=== PATIENT | male | born 1990 | race Caucasian/White ===

== ENCOUNTER → 2022-06-03 | Day surgery (SDC) | payer BC ==
[2022-06-03] VITALS (8 sets, daily range): BP systolic 147–162; BP diastolic 86–94
[~2022-06-03] VITALS: Ht 185.5 cm; Wt 99.8 kg
[~2022-06-03] MED LIST: ACHD5005 PO; AMOX-355 PO; AMOX1TAB11 PO; GLYCOPYRROLATE 0.2 MG/ML (ROBINUL) 2 ML VIAL ONE; HYDROmorphone 2 MG/ML VIAL (DILAUDID) IV ONE; IOHEXOL 350 MG/ML 100 ML (OMNIPAQUE 350) VIAL IV ONE; LACTATED RINGERS 1,000 ML IV ONE; LIDOCAINE PF 2% 5 ML (XYLOCAINE) VIAL ONE; LIDOCAINE/EPI 2% 1:200,00 (XYLOCAINE) 20 ML VIAL ONE; MEPERIDINE (DEMEROL) INJ 50 MG/ML IVP ONE; MEPERIDINE (DEMEROL) INJ 50 MG/ML ONE; MIDAZOLAM 2 MG/2 ML (VERSED) VIAL ONE; NEOSTIGMINE (BLOXIVERZ ) 1 MG/1ML 10 ML VIAL ONE; NS (IVPB) 100 ML ONE; NS 100 ML (IVPB) BAG IV ONE; ONDANSETRON 4 MG/2 ML (SDV) Z0FRAN IVP PRN; ONDANSETRON 4 MG/2 ML (SDV) Z0FRAN ONE; PIPERACILLIN/TAZO 4.5 GM VIAL (ZOSYN) IV ONE; PROMETHAZINE INJ 25 MG/ML (PHENERGAN) AMP IVP ONE; ROCURONIUM 50 MG/5 ML (ZEMURON) VIAL IV ONE; SEVOFLURANE (ULTANE) 15 ML INHAL SOLN ONE; ceFAZolin INJECTION 2,000 MG ONE; fentaNYL INJ 100 MCG/2 ML AMP IVP ONE; fentaNYL INJ 100 MCG/2 ML AMP ONE; morphine INJ 10 MG/ML 1ML (SYR OR VIAL) IVP ONE; morphine INJ 10 MG/ML 1ML (SYR OR VIAL) IVP STA; morphine INJ 10 MG/ML 1ML (SYR OR VIAL) ONE; proPOfol 200 MG/20 ML (DIPRIVAN) VIAL IV ONE
[2022-06-03 17:25] LABS: BASOPHILS # (AUTO) 0.1 10^3/uL (0.0-0.1); BASOPHILS % (AUTO) 0 % (0-10); EOSINOPHILS % (AUTO) 0 % (0-10); HEMATOCRIT 45 % (40-54); HEMOGLOBIN 15.5 g/dL (13.3-17.7); LYMPHOCYTES # (AUTO) 1.2 10^3/uL (1.0-4.0); LYMPHOCYTES % (AUTO) 6 % (12-44); MEAN CORPUSCULAR HEMOGLOBIN 29 pg (25-34); MEAN CORPUSCULAR HGB CONC 34 g/dL (32-36); MEAN CORPUSCULAR VOLUME 83 fL (80-99); MEAN PLATELET VOLUME 8.6 fL (9.0-12.2); MONOCYTES # (AUTO) 1.3 10^3/uL (0.0-1.0); MONOCYTES % (AUTO) 6 % (0-12); NEUTROPHILS # (AUTO) 18.8 10^3/uL (1.8-7.8); NEUTROPHILS % (AUTO) 88 % (42-75); PLATELET COUNT 334 10^3/uL (130-400); WHITE BLOOD COUNT 21.4 10^3/uL (4.3-11.0)
--- NOTE | 2022-06-03 17:27 | ED Abdominal Pain ---
General Chief Complaint: Abdominal/GI Problems Stated Complaint: ABDOMINAL PAIN Source of Information: Patient Exam Limitations: No Limitations History of Present Illness Date Seen by Provider: Jun 03, 2022 Time Seen by Provider: 17:07 Initial Comments Patient to the ER by private conveyance for chief complaint that about 5:00 yesterday evening he started having some right lower quadrant abdominal pain that is only progressively gotten worse. He is nauseated without vomiting. He has not eaten since 1900 yesterday evening. He is not having diarrhea fevers but he is having chills. He has no history of abdominal surgeries. He has not taken anything for pain. No significant family or medical history. Allergies and Home Medications Allergies Coded Allergies: No Known Drug Allergies (Unverified , 06/03/22) Patient Home Medication List Home Medication List Reviewed: Yes Review of Systems Review of Systems Constitutional: No chills, No diaphoresis EENTM: No Blurred Vision, No Double Vision Respiratory: Denies Cough, Denies Shortness of Air Cardiovascular: Denies Chest Pain, Denies Lightheadedness Gastrointestinal: Denies Abdominal Pain, Denies Constipated, Denies Diarrhea; Nausea; Denies Vomiting Genitourinary: Denies Burning, Denies Discharge Musculoskeletal: No back pain, No joint pain All Other Systems Reviewed Negative Unless Noted: Yes Past Nmutxyj-Zibdzh-Bpojxd Hx Patient Social History Tobacco Use?: No Use of E-Cig and/or Vaping dev: No Substance use?: No Alcohol Use?: Yes Alcohol type: Beer Alcohol Frequency: Several times a month (Weekend drinker) Physical Exam Vital Signs Vital Signs - First Documented 06/03/22 17:00 Temp 36.6 Pulse 93 Resp 24 B/P (MAP) 144/87 (106) Pulse Ox 97 Capillary Refill : Height/Weight/BMI Height: '" Weight: lbs. oz. kg; BMI Method: General Appearance: WD/WN, moderate distress HEENT: PERRL/EOMI, pharynx normal Neck: full range of motion, normal inspection Respiratory: lungs clear, normal breath sounds, no respiratory distress, no accessory muscle use Cardiovascular: normal peripheral pulses, regular rate, rhythm Peripheral Pulses: 2+ Radial Pulses (R), 2+ Radial Pulses (L) Gastrointestinal: normal bowel sounds, soft, guarding (Right lower quadrant), tenderness (Right lower quadrant tenderness with rebound tenderness and Rovsing sign positive.) Extremities: normal inspection, normal capillary refill Neurologic/Psychiatric: alert, normal mood/affect, oriented x 3 Skin: normal color, warm/dry Progress/Results/Core Measures Results/Orders Lab Results Laboratory Tests Test 06/03/22 17:10 Range/Units White Blood Count 21.4 H 4.3-11.0 10^3/uL Red Blood Count 5.42 4.30-5.52 10^6/uL Hemoglobin 15.5 13.3-17.7 g/dL Hematocrit 45 40-54 % Mean Corpuscular Volume 83 80-99 fL Mean Corpuscular Hemoglobin 29 25-34 pg Mean Corpuscular Hemoglobin Concent 34 32-36 g/dL Red Cell Distribution Width 12.8 10.0-14.5 % Platelet Count 334 130-400 10^3/uL Mean Platelet Volume 8.6 L 9.0-12.2 fL Immature Granulocyte % (Auto) 0 % Neutrophils (%) (Auto) 88 H 42-75 % Lymphocytes (%) (Auto) 6 L 12-44 % Monocytes (%) (Auto) 6 0-12 % Eosinophils (%) (Auto) 0 0-10 % Basophils (%) (Auto) 0 0-10 % Neutrophils # (Auto) 18.8 H 1.8-7.8 10^3/uL Lymphocytes # (Auto) 1.2 1.0-4.0 10^3/uL Monocytes # (Auto) 1.3 H 0.0-1.0 10^3/uL Eosinophils # (Auto) 0.0 0.0-0.3 10^3/uL Basophils # (Auto) 0.1 0.0-0.1 10^3/uL Immature Granulocyte # (Auto) 0.1 0.0-0.1 10^3/uL Neutrophils % (Manual) 81 % Lymphocytes % (Manual) 7 % Monocytes % (Manual) 6 % Eosinophils % (Manual) 0 % Basophils % (Manual) 0 % Band Neutrophils 6 % Blood Morphology Comment NORMAL Sodium Level 135 135-145 MMOL/L Potassium Level 3.6 3.6-5.0 MMOL/L Chloride Level 99 98-107 MMOL/L Carbon Dioxide Level 24 21-32 MMOL/L Anion Gap 12 5-14 MMOL/L Blood Urea Nitrogen 6 L 7-18 MG/DL Creatinine 0.98 0.60-1.30 MG/DL Estimat Glomerular Filtration Rate 106 BUN/Creatinine Ratio 6 Glucose Level 116 H 70-105 MG/DL Calcium Level 9.5 8.5-10.1 MG/DL Corrected Calcium 9.1 8.5-10.1 MG/DL Total Bilirubin 1.9 H 0.1-1.0 MG/DL Aspartate Amino Transf (AST/SGOT) 15 5-34 U/L Alanine Aminotransferase (ALT/SGPT) 23 0-55 U/L Alkaline Phosphatase 62 40-136 U/L C-Reactive Protein High Sensitivity 14.33 H 0.00-0.50 MG/DL Total Protein 8.2 6.4-8.2 GM/DL Albumin 4.5 3.2-4.5 GM/DL My Orders Orders - ETHAN BORGES Ed Iv/Invasive Line Start (06/03/22 17:17) Lactated Ringers (Lr 1000 Ml Iv Solution (06/03/22 17:30) Ct Abd/Pelv W (Appendicitis) (06/03/22 17:17) Fentanyl Inj (Sublimaze Injection) (06/03/22 17:30) Cbc With Automated Diff (06/03/22 17:17) Comprehensive Metabolic Panel (06/03/22 17:17) Hs C Reactive Protein (06/03/22 17:17) Iohexol Injection (Omnipaque 350 Mg/Ml 1 (06/03/22 17:30) Ns (Ivpb) (Sodium Chloride 0.9% Ivpb Bag (06/03/22 17:30) Manual Differential (06/03/22 17:10) Medications Given in ED Current Medications Medications Dose Ordered Sig/Chris Route Start Time Stop Time Status Last Admin Dose Admin Fentanyl Citrate 50 mcg ONCE ONCE IVP 06/03/22 17:30 06/03/22 17:31 DC 06/03/22 17:24 50 MCG Iohexol 100 ml ONCE ONCE IV 06/03/22 17:30 06/03/22 17:31 DC 06/03/22 17:56 80 ML Lactated Ringer's 1,000 ml @ 0 mls/hr Q0M ONCE IV 06/03/22 17:30 06/03/22 17:31 DC 06/03/22 17:24 0 MLS/HR Sodium Chloride 100 ml ONCE ONCE IV 06/03/22 17:30 06/03/22 17:31 DC 06/03/22 17:56 80 ML Vital Signs/I&O 06/03/22 17:00 Temp 36.6 Pulse 93 Resp 24 B/P (MAP) 144/87 (106) Pulse Ox 97 Progress Progress Note : Time: 17:25 Progress Note Plan to give him 50 mcg of fentanyl, a liter of LR, ondansetron and get a CT of the abdomen pelvis with IV contrast. Suspect appendicitis versus colitis versus diverticulitis versus other Diagnostic Imaging Diagonstic Imaging: CT Plain Films/CT/US/NM/MRI: abdomen, pelvis Comments [facility] [place], [place] NAME: [facility] REC#: [id number] PT STATUS: REG ER : 1990 PHYSICIAN: ETHAN BORGES MD ADMIT DATE: 06/03/22/ER Draft Date of Exam:06/03/22 CT ABD/PELV W (APPENDICITIS) PROCEDURE: CT abdomen and pelvis with contrast, rule out appendicitis. TECHNIQUE: Multiple contiguous axial images were obtained through the abdomen and pelvis after the administration of intravenous contrast. All CT scans use one or more of the following dose optimizing techniques: automated exposure control, MA and/or KvP adjustment based on patient size and exam type or iterative reconstruction. INDICATION: Right lower quadrant pain with nausea, vomiting, and diarrhea. No prior studies are available for comparison. The lung bases are clear. Liver does show some generalized low attenuation suggestive of hepatic steatosis. No liver mass is detected. Gallbladder is unremarkable. There is no biliary ductal dilatation. Pancreas and spleen are unremarkable. No adrenal mass is detected. Kidneys are without hydronephrosis. There does appear to be approximately 2 mm nonobstructing calculus lower pole right kidney. Aorta is nonaneurysmal. There is significant inflammation in the right lower quadrant. The appendix is dilated and thick-walled and does contain an appendicolith. Periappendiceal inflammation is present. No definite abscess formation or bowel obstruction is seen. There are some fluid-filled small bowel loops. The ascending colon is also fluid-filled. No free fluid is seen. Bladder and prostate are unremarkable. IMPRESSION: 1. Findings consistent with acute appendicitis. The appendix does contain an appendicolith. No abscess formation or bowel obstruction is identified. 2. Hepatic steatosis. Dictated on workstation # [id number] Dict: 06/03/22 1759 Trans: 06/03/22 1807 [facility] [id number] Interpreted by: RENETTA POSEY MD Electronically signed by: Reviewed: Reviewed by Me Departure Communication (Admissions) Time/Spoke to Admitting Phy: 18:[address] Foster who plans to take him straight to surgery. Keep him n.p.o. He will dose with antibiotics prior to surgery Impression Primary Impression: Appendicitis Qualified Codes: K35.30 - Acute appendicitis with localized peritonitis, without perforation or gangrene Disposition: 01 HOME, SELF-CARE Condition: Stable Admissions Decision to Admit Reason: Admit from ER (General) Decision to Admit/Date: Jun 03, 2022 Time/Decision to Admit Time: 18:22 ETHAN BORGES Jun 03, 2022 17:27
[2022-06-03 17:31] LABS: ALBUMIN 4.5 GM/DL (3.2-4.5); POTASSIUM 3.6 MMOL/L (3.6-5.0)
[2022-06-03 17:32] LABS: CALCIUM 9.5 MG/DL (8.5-10.1)
[2022-06-03 17:34] LABS: TOTAL PROTEIN 8.2 GM/DL (6.4-8.2)
[2022-06-03 17:36] LABS: BILIRUBIN,TOTAL 1.9 MG/DL (0.1-1.0)
[2022-06-03 17:37] LABS: CREATININE SERUM 0.98 MG/DL (0.60-1.30)
[2022-06-03 17:43] LABS: BAND NEUTROPHILS 6 %; BASOPHILS % (MANUAL) 0 %; EOSINOPHILS % (MANUAL) 0 %; LYMPHOCYTES % (MANUAL) 7 %; MONOCYTES % (MANUAL) 6 %; NEUTROPHILS % (MANUAL) 81 %; RBC MORPH NORMAL
--- NOTE | 2022-06-03 18:08 | Diagnostic Imaging Report ---
PROCEDURE: CT abdomen and pelvis with contrast, rule out appendicitis. TECHNIQUE: Multiple contiguous axial images were obtained through the abdomen and pelvis after the administration of intravenous contrast. All CT scans use one or more of the following dose optimizing techniques: automated exposure control, MA and/or KvP adjustment based on patient size and exam type or iterative reconstruction. INDICATION: Right lower quadrant pain with nausea, vomiting, and diarrhea. No prior studies are available for comparison. The lung bases are clear. Liver does show some generalized low attenuation suggestive of hepatic steatosis. No liver mass is detected. Gallbladder is unremarkable. There is no biliary ductal dilatation. Pancreas and spleen are unremarkable. No adrenal mass is detected. Kidneys are without hydronephrosis. There does appear to be approximately 2 mm nonobstructing calculus lower pole right kidney. Aorta is nonaneurysmal. There is significant inflammation in the right lower quadrant. The appendix is dilated and thick-walled and does contain an appendicolith. Periappendiceal inflammation is present. No definite abscess formation or bowel obstruction is seen. There are some fluid-filled small bowel loops. The ascending colon is also fluid-filled. No free fluid is seen. Bladder and prostate are unremarkable. IMPRESSION: 1. Findings consistent with acute appendicitis. The appendix does contain an appendicolith. No abscess formation or bowel obstruction is identified. 2. Hepatic steatosis. Dictated by: Dictated on workstation # [id number]
--- NOTE | 2022-06-03 19:06 | Consultation - Surgery ---
History of Present Illness History of Present Illness Patient Consulted On(sarai/time) 06/03/22 18:58 Time Seen by Provider: 18:41 History of Present Illness Surgery asked to consult regarding RLQ pain. HPI per ED: Patient to the ER by private conveyance for chief complaint that about 5:00 yesterday evening he started having some right lower quadrant abdominal pain that is only progressively gotten worse. He is nauseated without vomiting. He has not eaten since 1900 yesterday evening. He is not having diarrhea fevers but he is having chills. He has no history of abdominal surgeries. He has not taken anything for pain. No significant family or medical history. When I spoke to the patient in the ER he was in his bed in room 2 in mild to moderate distress secondary pain he can tell that he was hurting. States the pain started yesterday evening and just never went away he rated as at least a 7-8 out of 10 on a 1-10 scale never got better did not really get worse. Associate with some nausea no vomiting. He states he has had some chills. He has not been able to eat because of the pain last time he ate was last night at 7 PM. He states he never had anything like this before, he stated nothing made it better and bouncing in the car made a little bit worse. Allergies and Home Medications Allergies Coded Allergies: No Known Drug Allergies (Unverified , 06/03/22) Patient Home Medication List Home Medication List Reviewed: Yes Past Dsaxziz-Ynbcmw-Qrtvcq Hx Patient Social History Smoking Status: Never a Smoker Alcohol Use?: Yes Surgeries History of Surgeries: No Respiratory History of Respiratory Disorde: No Cardiovascular History of Cardiac Disorders: No Neurological History of Neurological Disord: No Genitourinary History of Genitourinary Disor: No Gastrointestinal History of Gastrointestinal Di: No Musculoskeletal History of Musculoskeletal Dis: No Endocrine History of Endocrine Disorders: No HEENT History of HEENT Disorders: No Loss of Vision: Denies Hearing Impairment: Denies Cancer History of Cancer: No Psychosocial History of Psychiatric Problem: No Integumentary History of Skin or Integumenta: No Family Medical History Significant Family History: Heart Disease (Mother at 39) Review of Systems-General Constitutional: chills; No diaphoresis, No fever EENTM: No blurred vision, No double vision, No mouth swelling, No epistaxis Respiratory: No cough, No dyspnea on exertion, No short of breath Cardiovascular: No chest pain, No palpitations Gastrointestinal: abdominal pain (RLQ); No jaundice; loss of appetite, nausea; No vomiting Genitourinary: No dysuria, No frequency, No hematuria Musculoskeletal: No joint pain, No joint swelling, No muscle stiffness Skin: No change in color, No change in hair/nails Psychiatric/Neurological: Denies Anxiety, Denies Depressed, Denies Seizure, Denies Tremors Physical Exam-General Problems Physical Exam Vital Signs Vital Signs - First Documented 06/03/22 17:00 Temp 36.6 Pulse 93 Resp 24 B/P (MAP) 144/87 (106) Pulse Ox 97 Capillary Refill : General Appearance: WD/WN, mild distress Eyes: Bilateral Eye PERRL, Bilateral Eye EOMI HEENT: pharynx normal; No scleral icterus (R), No scleral icterus (L) Neck: non-tender, supple Respiratory: lungs clear, normal breath sounds, no respiratory distress, no accessory muscle use Cardiovascular: regular rate, rhythm, no murmur Gastrointestinal: soft, no organomegaly, tenderness (diffusely but more so RLQ), hernia (umbilical) Back: no CVA tenderness, no vertebral tenderness Extremities: non-tender, normal inspection, no pedal edema, no calf tenderness Neurologic/Psychiatric: systems integrator II-XII nml as tested, no motor/sensory deficits, alert, normal mood/affect, oriented x 3 Skin: normal color, warm/dry Lymphatic: no adenopathy (neck, axilla or groin) Data Review Labs Laboratory Tests 06/03/22 17:10: White Blood Count 21.4H, Red Blood Count 5.42, Hemoglobin 15.5, Hematocrit 45, Mean Corpuscular Volume 83, Mean Corpuscular Hemoglobin 29, Mean Corpuscular Hemoglobin Concent 34, Red Cell Distribution Width 12.8, Platelet Count 334, Mean Platelet Volume 8.6L, Immature Granulocyte % (Auto) 0, Neutrophils (%) (Auto) 88H, Lymphocytes (%) (Auto) 6L, Monocytes (%) (Auto) 6, Eosinophils (%) (Auto) 0, Basophils (%) (Auto) 0, Neutrophils # (Auto) 18.8H, Lymphocytes # (Auto) 1.2, Monocytes # (Auto) 1.3H, Eosinophils # (Auto) 0.0, Basophils # (Auto) 0.1, Immature Granulocyte # (Auto) 0.1, Neutrophils % (Manual) 81, Lymphocytes % (Manual) 7, Monocytes % (Manual) 6, Eosinophils % (Manual) 0, Basophils % (Manual) 0, Band Neutrophils 6, Blood Morphology Comment NORMAL, Sodium Level 135, Potassium Level 3.6, Chloride Level 99, Carbon Dioxide Level 24, Anion Gap 12, Blood Urea Nitrogen 6L, Creatinine 0.98, Estimat Glomerular Filtration Rate 106, BUN/Creatinine Ratio 6, Glucose Level 116H, Calcium Level 9.5, Corrected Calcium 9.1, Total Bilirubin 1.9H, Aspartate Amino Transf (AST/SGOT) 15, Alanine Aminotransferase (ALT/SGPT) 23, Alkaline Phosphatase 62, C-Reactive Protein High Sensitivity 14.33H, Total Protein 8.2, Albumin 4.5 Radiology Date of Exam:06/03/22 CT ABD/PELV W (APPENDICITIS) PROCEDURE: CT abdomen and pelvis with contrast, rule out appendicitis. TECHNIQUE: Multiple contiguous axial images were obtained through the abdomen and pelvis after the administration of intravenous contrast. All CT scans use one or more of the following dose optimizing techniques: automated exposure control, MA and/or KvP adjustment based on patient size and exam type or iterative reconstruction. INDICATION: Right lower quadrant pain with nausea, vomiting, and diarrhea. No prior studies are available for comparison. The lung bases are clear. Liver does show some generalized low attenuation suggestive of hepatic steatosis. No liver mass is detected. Gallbladder is unremarkable. There is no biliary ductal dilatation. Pancreas and spleen are unremarkable. No adrenal mass is detected. Kidneys are without hydronephrosis. There does appear to be approximately 2 mm nonobstructing calculus lower pole right kidney. Aorta is nonaneurysmal. There is significant inflammation in the right lower quadrant. The appendix is dilated and thick-walled and does contain an appendicolith. Periappendiceal inflammation is present. No definite abscess formation or bowel obstruction is seen. There are some fluid-filled small bowel loops. The ascending colon is also fluid-filled. No free fluid is seen. Bladder and prostate are unremarkable. IMPRESSION: 1. Findings consistent with acute appendicitis. The appendix does contain an appendicolith. No abscess formation or bowel obstruction is identified. 2. Hepatic steatosis. Dictated on workstation # [id number] Dict: 06/03/22 1244 Trans: 06/03/22 1807 [facility] [id number] Interpreted by: RENETTA POSEY MD Assessment/Plan Assessment/Plan Assessment/Plan Acute Appendicitis Patient has pretty classic signs for appendicitis he has right lower quadrant pain that has not gotten better he had some nausea no vomiting had a CAT scan performed I looked at it myself visualized the images and discussed this case with the ER physician. He has an appendicolith stranding and inflammation in the right lower quadrant this is acute appendicitis. Discussed the procedure with the patient he needs a laparoscopic appendectomy possible open. Discussed risk and complications not limited to pain, bleeding, infection, scar and damage to intestine with need for further procedure. All questions answered to patient's satisfaction. He will get IV fluids IV antibiotics on-call to the OR pain meds as needed antiemetics as needed and if everything goes smoothly he will probably be able to go home tonight. NAMITA NEAL DO Jun 03, 2022 19:06
[2022-06-03] MEDS: LACTATED RINGERS 1,000 ML IV PRN ×2 (19:07→19:39)
[2022-06-03] MEDS: fentaNYL INJ 100 MCG/2 ML AMP ONE ×2 (19:51→20:34)
--- NOTE | 2022-06-03 20:24 | Progress Note-Post Operative ---
Post-Operative Progess Note Surgeon (s)/General Matcher (s) Surgeon NAMITA NEAL DO General Matcher: NONE Pre-Operative Diagnosis Acute Appendicitis Post-Operative Diagnosis Same with perforation Procedure & Operative Findings Date of Procedure 06/03/22 Procedure Performed/Findings PROCEDURE: Laparoscopic appendectomy. COMPLICATIONS: None. INDICATIONS: The patient is a 31 year old male who has been having right lower quadrant abdominal pain. Patient's exam consistent with appendicitis. I discussed risk and benefits of laparoscopic appendectomy and all indicated procedures with the possibility being a normal appendix. The patient understands the risks and benefits and wishes to proceed. Consent was signed on the chart. DESCRIPTION OF PROCEDURE: The patient was taken to the operating suite, prepped and draped in a sterile fashion. Timeout was performed. Local anesthetic was infiltrated just above the umbilicus and 11-blade scalpel was used to make a skin incision. Cautery was used to dissect down to the fascia and scored. Kochers were used to grasp and elevate it and the abdomen was then entered. A 0 Vicryl was placed in a [id number] fashion for closure at the end of the case. The balloon trocar was inserted into the abdomen and pneumoperitoneum was achieved. Under direct visualization of the laparoscope, a 5 mm trocar was placed in the suprapubic region and a 5 mm trocar was placed in the left lower quadrant. Appendix was located, under omentum and fibrinous material. While moving everything aside encountered small amout of fecal material and then found hole in appendix. The base of the appendix was dissected around. Once at the base an Endo-ISH 2.5 stapler was then fired across the base of the appendix. The mesoappendix was then divided. It was then placed in an Endobag and removed through the 12 mm trocar site. The abdomen was then copiously irrigated and suctioned. No other pathology noted. Elected to place a EMELY drain in the right colic gutter and brought it out through the supra-pubic incision. It was sutured in place with a 2-0 Nylon suture. The abdomen was then desufflated and the trocars were removed. The 0 Vicryl placed at the beginning of the case was then tied closing the 12 mm fascial defect. The skin was then closed using 4-0 Monocryl in a subcuticular fashion. The abdomen was then washed and dried and Skin Affix was placed over the incisions. The patient tolerated the procedure well without any complications and was taken to the recovery room in stable condition. Anesthesia Type GET Estimated Blood Loss Estimated blood loss (mL): scant Specimens/Packing Specimens Removed appendix NAMITA NEAL DO Jun 03, 2022 20:24
--- NOTE | 2022-06-03 20:27 | Discharge Inst-Surgical ---
Discharge Inst-Surgical Depart Medication/Instructions New, Converted or Re-Newed RX: Transmitted to Pharmacy Patient Instructions Follow up Appt: Make appointment for 1 week. [phone] Instructions: No lifting greater than 20 pounds. No strenuous activity. May shower in 24 hours, no tub bath or soaking. Use incentive spirometer at home as directed. No Smoking Skin/Wound Care: May remove bandages in am. You need to leave the Dermabond on incision it will fall off on it's own. Symptoms to Report: Appetite Changes, Extremity Discoloration, Numbness/Tingling, Swelling Increased, Bleeding Excessive, Eyesight Changes, Pain Increased, Urine Color Change, Constipation(Persistent), Fever over 101 degree F, Pain/Pressure in chest, Urinating Difficulty, Cough Up/Vomit Blood, Heart Beat Irreg/Pounding, Pain/Pressure in jaw, Cramps in feet or legs, Lightheadedness, Pain/Pressure in shoulder, Diarrhea(Persistent), Memory Changes Suddenly, Questions/Concerns, Weight gain consecutive days, Dizziness/Fainting, Nausea/Vomiting, Shortness of Breath, Weight gain over 2 pounds If questions or concerns contact your physician Or seek help at emergency department. Activity Activity as Tolerated: Yes Activity Instructions: Avoid Stress to Incision Driving Instructions: No Driving/Refer to Dr. Flower Discharge Diet: No Restrictions Diet After 24 Hours: Clear Liquid if Nauseous If Any Problems/Questions/Issu: Contact Your Physician, Go to Emergency Room Skin/Wound Care Infection Signs and Symptoms: Increased Redness, Foul Odor of Wound, Increased Drainage, Skin Itchy or Has a Rash, Increased Swelling, Temperature Above 101 F Wound Care Comment: EMELY drain teaching Bathing Instructions: Shower Stitches/[place]/Dermabond Dis: Dermabond Ice Pack: Ice On and Off Site NAMITA NEAL DO Jun 03, 2022 20:27
--- NOTE | 2022-06-04 10:38 | Anesthesia-General Post-Op ---
General Patient Condition Mental Status/LOC: Same as Preop Cardiovascular: Satisfactory Nausea/Vomiting: Absent Respiratory: Satisfactory Pain: Controlled Complications: Absent Post Op Complications Complications None Follow Up Care/Instructions Patient Instructions None needed. Anesthesia/Patient Condition Patient Condition Patient is doing well, no complaints, stable vital signs, no apparent adverse anesthesia problems. No complications reported per nursing. INA MANNING CRNA Jun 04, 2022 10:38
== END | disposition home or self-care (01) ==
LOC: ER 16:48 → SDC 18:49
PROVIDERS: ATTEND Surgery
DX: K35.32 Acute appendicitis with perforation, localized peritonitis, and gangrene, without abscess (principal); Z28.310 Unvaccinated for COVID-19
CPT/HCPCS: 36415; 74177; 80053; 85007; 85027; 86141; 96361; 96374; 96375

== ENCOUNTER 2022-06-09 09:24 | Inpatient (IN) | payer BC ==
[~2022-06-09] VITALS: Ht 185 cm; Wt 96.1 kg
[~2022-06-09 09:24] MED LIST changes: -AMOX1TAB11 PO; -GLYCOPYRROLATE 0.2 MG/ML (ROBINUL) 2 ML VIAL ONE; -HYDROmorphone 2 MG/ML VIAL (DILAUDID) IV ONE; -IOHEXOL 350 MG/ML 100 ML (OMNIPAQUE 350) VIAL IV ONE; -LACTATED RINGERS 1,000 ML IV ONE; -LIDOCAINE PF 2% 5 ML (XYLOCAINE) VIAL ONE; -LIDOCAINE/EPI 2% 1:200,00 (XYLOCAINE) 20 ML VIAL ONE; -MEPERIDINE (DEMEROL) INJ 50 MG/ML IVP ONE; -MEPERIDINE (DEMEROL) INJ 50 MG/ML ONE; -MIDAZOLAM 2 MG/2 ML (VERSED) VIAL ONE; -NEOSTIGMINE (BLOXIVERZ ) 1 MG/1ML 10 ML VIAL ONE; -NS (IVPB) 100 ML ONE; -NS 100 ML (IVPB) BAG IV ONE; -ONDANSETRON 4 MG/2 ML (SDV) Z0FRAN IVP PRN; -ONDANSETRON 4 MG/2 ML (SDV) Z0FRAN ONE; -PIPERACILLIN/TAZO 4.5 GM VIAL (ZOSYN) IV ONE; -PROMETHAZINE INJ 25 MG/ML (PHENERGAN) AMP IVP ONE; -ROCURONIUM 50 MG/5 ML (ZEMURON) VIAL IV ONE; -SEVOFLURANE (ULTANE) 15 ML INHAL SOLN ONE; -ceFAZolin INJECTION 2,000 MG ONE; -fentaNYL INJ 100 MCG/2 ML AMP IVP ONE; -fentaNYL INJ 100 MCG/2 ML AMP ONE; -morphine INJ 10 MG/ML 1ML (SYR OR VIAL) IVP ONE; -morphine INJ 10 MG/ML 1ML (SYR OR VIAL) IVP STA; -morphine INJ 10 MG/ML 1ML (SYR OR VIAL) ONE; -proPOfol 200 MG/20 ML (DIPRIVAN) VIAL IV ONE
[2022-06-09] MEDS ORDERED: NS 100 ML (IVPB) BAG IV ONE (10:00)
[2022-06-09] MEDS ORDERED: IOHEXOL 350 MG/ML 100 ML (OMNIPAQUE 350) VIAL IV ONE (10:00)
[2022-06-09] MEDS ORDERED: fentaNYL INJ 100 MCG/2 ML AMP IVP ONE (10:00)
[2022-06-09] MEDS ORDERED: NS IV 1000 ML 1,000 ML IV SCH (10:00)
[2022-06-09] MEDS ORDERED: CATHETER FLUSH 10 ML SYR IV PRN (10:00)
--- NOTE | 2022-06-09 10:02 | ED Abdominal Pain ---
General Chief Complaint: Post OP Complications/Pain Stated Complaint: R SHOULDER PAIN, SWEATS Nursing Triage Note: PT STATES HAVING AN APPENDECTOMY HERE LAST THURSDAY, CC OF POST OP PAIN IN ABD AND RT SHOULDER, DIARRHEA, SINUS DRAINAGE, DRAIN FROM LOWER ABD INCISION SHOWS CLEAR YELLOW DRAINAGE. PT IS STILL TAKING ABX BUT QUIT TAKING HIS HYDROS BECUASE HE COULDN'T SLEEP WHEN HE TOOK THEM. Source of Information: Patient Exam Limitations: No Limitations History of Present Illness Date Seen by Provider: Jun 09, 2022 Time Seen by Provider: 09:40 Initial Comments 31-year-old male presents emergency department today for right lower abdominal pain, right shoulder pain. He had laparoscopic appendectomy for a partially perforated appendix on 06/03. He states he has had continued pain in his right lower abdomen since the procedure. Record review shows he had a partially perforated appendix and a EMELY drain was placed. He states in his right lower abdomen is dull throbbing without radiation. New pain in his right shoulder as well. He has chills at home but has not taken her temperature. He is having bowel movements. No vomiting. He stopped taking pain medications a couple days ago as he thought it was responsible for his chills. No urinary symptoms and urinating without difficulty. He is taking antibiotics as prescribed on discharge Allergies and Home Medications Allergies Coded Allergies: No Known Drug Allergies (Unverified , 06/03/22) Patient Home Medication List Home Medication List Reviewed: Yes Amoxicillin/Potassium Clav (Augmentin 500-125 Tablet) 500 Mg-125 Mg Tablet, 1 EACH PO TID Prescribed by: NAMITA NEAL on 06/03/222025 Hydrocodone Bit/Acetaminophen (HYDROcodone/APAP 5 MG/325 MG TAB) 1 Tab Tab, 1 TAB PO Q8H PRN for PAIN-MODERATE (5-7) Prescribed by: NAMITA NEAL on 06/03/222025 Review of Systems Review of Systems Constitutional: chills, fever, malaise EENTM: No Symptoms Reported Respiratory: No Symptoms Reported Cardiovascular: No Symptoms Reported Gastrointestinal: Abdominal Pain Genitourinary: No Symptoms Reported Musculoskeletal: joint pain Skin: no symptoms reported Psychiatric/Neurological: No Symptoms Reported Endocrine: No Symptoms Reported Hematologic/Lymphatic: No Symptoms Reported Past Xhnnvip-Lzsuot-Wyepns Hx Patient Social History Tobacco Use?: No Substance use?: No Alcohol Use?: Yes Alcohol type: Beer, Hard Liquor, Wine Alcohol Frequency: Once in a while Past Medical History Surgery/Hospitalization HX: APPENDECTOMY Surgeries: No Respiratory: No Currently Using CPAP: No Currently Using BIPAP: No Cardiac: No Neurological: No Genitourinary: No Gastrointestinal: No Musculoskeletal: No Endocrine: No HEENT: No Loss of Vision: Denies Hearing Impairment: Denies Cancer: No Psychosocial: No Integumentary: No Family Medical History Reviewed Nursing Family Hx No Pertinent Family Hx, Heart Disease Physical Exam Vital Signs Vital Signs - First Documented 06/09/22 09:31 Temp 36.7 Pulse 85 Resp 20 Pulse Ox 97 O2 Delivery Room Air Capillary Refill : Less Than 3 Seconds Height/Weight/BMI Height: '" Weight: lbs. oz. kg; 29.00 BMI Method: General Appearance: WD/WN, no apparent distress HEENT: PERRL/EOMI, normal ENT inspection, TMs normal, pharynx normal Neck: non-tender, full range of motion, supple, normal inspection Respiratory: chest non-tender, lungs clear, normal breath sounds, no respiratory distress, no accessory muscle use Cardiovascular: regular rate, rhythm, no edema, no gallop, no JVD, no murmur Gastrointestinal: normal bowel sounds, other (Exquisite tenderness to the right lower abdomen. Voluntary and involuntary guarding. EMELY drain with its insertion just below the umbilicus. 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, no motor/sensory deficits, normal mood/affect, oriented x 3 Skin: normal color, warm/dry Lymphatic: no adenopathy Progress/Results/Core Measures Results/Orders Lab Results Laboratory Tests Test 06/09/22 10:00 Range/Units White Blood Count 13.6 H 4.3-11.0 10^3/uL Red Blood Count 4.83 4.30-5.52 10^6/uL Hemoglobin 13.6 13.3-17.7 g/dL Hematocrit 41 40-54 % Mean Corpuscular Volume 84 80-99 fL Mean Corpuscular Hemoglobin 28 25-34 pg Mean Corpuscular Hemoglobin Concent 33 32-36 g/dL Red Cell Distribution Width 13.3 10.0-14.5 % Platelet Count 421 H 130-400 10^3/uL Mean Platelet Volume 8.4 L 9.0-12.2 fL Immature Granulocyte % (Auto) 4 % Neutrophils (%) (Auto) 76 H 42-75 % Lymphocytes (%) (Auto) 11 L 12-44 % Monocytes (%) (Auto) 7 0-12 % Eosinophils (%) (Auto) 1 0-10 % Basophils (%) (Auto) 1 0-10 % Neutrophils # (Auto) 10.4 H 1.8-7.8 10^3/uL Lymphocytes # (Auto) 1.5 1.0-4.0 10^3/uL Monocytes # (Auto) 1.0 0.0-1.0 10^3/uL Eosinophils # (Auto) 0.1 0.0-0.3 10^3/uL Basophils # (Auto) 0.1 0.0-0.1 10^3/uL Immature Granulocyte # (Auto) 0.6 H 0.0-0.1 10^3/uL Sodium Level 135 135-145 MMOL/L Potassium Level 4.1 3.6-5.0 MMOL/L Chloride Level 97 L 98-107 MMOL/L Carbon Dioxide Level 25 21-32 MMOL/L Anion Gap 13 5-14 MMOL/L Blood Urea Nitrogen 9 7-18 MG/DL Creatinine 0.86 0.60-1.30 MG/DL Estimat Glomerular Filtration Rate 119 BUN/Creatinine Ratio 10 Glucose Level 100 70-105 MG/DL Calcium Level 9.2 8.5-10.1 MG/DL Corrected Calcium 9.7 8.5-10.1 MG/DL Total Bilirubin 0.8 0.1-1.0 MG/DL Aspartate Amino Transf (AST/SGOT) 74 H 5-34 U/L Alanine Aminotransferase (ALT/SGPT) 149 H 0-55 U/L Alkaline Phosphatase 122 40-136 U/L Total Protein 7.4 6.4-8.2 GM/DL Albumin 3.4 3.2-4.5 GM/DL My Orders Orders - LISSETTEDEVORAH DO Cbc With Automated Diff (06/09/22 09:50) Comprehensive Metabolic Panel (06/09/22 09:50) Ct Abd/Pelv W (Appendicitis) (06/09/22 09:50) Ns Iv 1000 Ml (Sodium Chloride 0.9%) (06/09/22 10:00) Fentanyl Inj (Sublimaze Injection) (06/09/22 10:00) Iohexol Injection (Omnipaque 350 Mg/Ml 1 (06/09/22 10:00) Ns (Ivpb) (Sodium Chloride 0.9% Ivpb Bag (06/09/22 10:00) Sodium Chloride Flush (Catheter Flush Sy (06/09/22 10:00) Piperacillin Sodium/Tazobactam (Zosyn Vi (06/09/22 11:15) Ed Admission (Communication) (06/09/22 11:12) Medications Given in ED Current Medications Medications Dose Ordered Sig/Chris Route Start Time Stop Time Status Last Admin Dose Admin Fentanyl Citrate 50 mcg ONCE ONCE IVP 06/09/22 10:00 06/09/22 10:01 DC 06/09/22 10:08 50 MCG Iohexol 100 ml ONCE ONCE IV 06/09/22 10:00 06/09/22 10:01 DC 06/09/22 10:21 80 ML Sodium Chloride 10 ml NEEDED PRN IV 06/09/22 10:00 06/09/22 10:21 10 ML Sodium Chloride 100 ml ONCE ONCE IV 06/09/22 10:00 06/09/22 10:01 DC 06/09/22 10:21 80 ML Vital Signs/I&O 06/09/22 06/09/22 09:31 10:08 Temp 36.7 36.7 Pulse 85 Resp 20 B/P (MAP) Pulse Ox 97 O2 Delivery Room Air Departure Communication (Admissions) Patient is hemodynamically stable. He does appear ill on exam and has pretty significant tenderness on his abdominal exam, more so than I would think would be present [address] scan shows possible early abscess formation right area of his liver which is consistent with where his pain is on exam. I spoke with Dr. Gardner who accepts patient in admission at this time. Request IV antibiotics, n.p.o. Spoke with patient who is comfortable and agreeable to current plan of care. Impression Primary Impression: RLQ abdominal pain Disposition: ADMITTED INPATIENT Condition: Stable Departure-Patient Inst. Referrals: NO,LOCAL PHYSICIAN (PCP/Family) Primary Care Physician DEVORAH MCLAUGHLIN DO Jun 09, 2022 10:02
[2022-06-09 10:10] LABS: BASOPHILS # (AUTO) 0.1 10^3/uL (0.0-0.1); BASOPHILS % (AUTO) 1 % (0-10); EOSINOPHILS # (AUTO) 0.1 10^3/uL (0.0-0.3); EOSINOPHILS % (AUTO) 1 % (0-10); HEMATOCRIT 41 % (40-54); HEMOGLOBIN 13.6 g/dL (13.3-17.7); LYMPHOCYTES # (AUTO) 1.5 10^3/uL (1.0-4.0); LYMPHOCYTES % (AUTO) 11 % (12-44); MEAN CORPUSCULAR HEMOGLOBIN 28 pg (25-34); MEAN CORPUSCULAR HGB CONC 33 g/dL (32-36); MEAN CORPUSCULAR VOLUME 84 fL (80-99); MEAN PLATELET VOLUME 8.4 fL (9.0-12.2); MONOCYTES % (AUTO) 7 % (0-12); NEUTROPHILS # (AUTO) 10.4 10^3/uL (1.8-7.8); NEUTROPHILS % (AUTO) 76 % (42-75); PLATELET COUNT 421 10^3/uL (130-400); WHITE BLOOD COUNT 13.6 10^3/uL (4.3-11.0)
[2022-06-09 10:18] LABS: ALBUMIN 3.4 GM/DL (3.2-4.5)
[2022-06-09 10:19] LABS: POTASSIUM 4.1 MMOL/L (3.6-5.0)
[2022-06-09 10:20] LABS: CALCIUM 9.2 MG/DL (8.5-10.1)
[2022-06-09 10:21] LABS: TOTAL PROTEIN 7.4 GM/DL (6.4-8.2)
[2022-06-09 10:23] LABS: BILIRUBIN,TOTAL 0.8 MG/DL (0.1-1.0)
[2022-06-09 10:25] LABS: CREATININE SERUM 0.86 MG/DL (0.60-1.30)
--- NOTE | 2022-06-09 10:38 | Diagnostic Imaging Report ---
EXAMINATION: CT abdomen and pelvis with intravenous contrast. TECHNIQUE: Multiple contiguous axial images were obtained through the abdomen and pelvis after the uneventful administration of intravenous contrast. All CT scans use one or more of the following dose optimizing techniques: automated exposure control, MA and/or KvP adjustment based on patient size and exam type or iterative reconstruction. HISTORY: Right lower quadrant pain. Recent appendectomy. COMPARISON: 06/03/2022. FINDINGS: The heart is unremarkable. Small effusion is seen on the right. Patchy bibasilar atelectasis is present. Bilateral nonobstructing renal calculi are seen. No evidence of hydronephrosis or obstructing calculi. No solid renal mass. The liver, spleen, pancreas, and adrenal glands have a normal appearance. The gallbladder is unremarkable. There is no pathologically enlarged mesenteric or retroperitoneal adenopathy. Postsurgical changes of appendectomy are visualized with a surgical drain in the right hemiabdomen. There is associated inflammation and edema in the right hemiabdomen. A collection of fluid is seen inferior to the liver measuring approximately 4.9 x 1.5 cm. No evidence of free air. No bowel obstruction. Bowel wall thickening is seen involving the ascending colon and distal ileum. No acute osseous abnormalities. Ureters and bladder are grossly normal. There is no free air, loculated collection, or adenopathy in the pelvis. IMPRESSION: 1. Interval postsurgical changes of appendectomy. There is a collection of fluid inferior to the liver measuring 4.9 cm which may represent early abscess formation. Additional inflammation and edema is seen in the right hemiabdomen. A surgical drain is in place. Recommend continued followup. 2. Reactive bowel wall thickening involving the ascending colon and distal ileum. No bowel obstruction. No free air. 3. Bilateral nonobstructing renal calculi. 4. Small right-sided effusion with bibasilar atelectasis. Dictated by: Dictated on workstation # [id number]
[2022-06-09] MEDS ORDERED: PIPERACILLIN SODIUM/TAZOBACTAM 4.5 GM in NS (IVPB) 100 ML IV ONE (11:15)
[2022-06-09 12:46] VITALS: BP 132/82
[2022-06-09] MEDS: NS IV 1000 ML 1,000 ML IV SCH (13:21)
[2022-06-09] MEDS ORDERED: fentaNYL INJ 100 MCG/2 ML AMP IV PRN (13:30)
[2022-06-09] MEDS ORDERED: ONDANSETRON 4 MG/2 ML (SDV) Z0FRAN IV PRN (13:30)
[2022-06-09] MEDS ORDERED: CATHETER FLUSH 10 ML SYR IVP PRN (13:30)
[2022-06-09] MEDS ORDERED: AMOX1TAB11 PO (13:46)
[2022-06-09] MEDS ORDERED: ACHD5005 PO (13:46)
[2022-06-09 15:53] VITALS: BP 133/77
[2022-06-09] MEDS: PIPERACILLIN SODIUM/TAZOBACTAM 4.5 GM in NS (IVPB) 100 ML IV SCH (18:43)
[2022-06-09 19:59] VITALS: BP 125/71
[2022-06-09] MEDS ORDERED: morphine INJ 4 MG/ML 1 ML (VIAL/SYRINGE) IVP PRN (20:00)
[2022-06-10] VITALS (7 sets, daily range): BP systolic 110–140; BP diastolic 58–82
[2022-06-10] MEDS: NS IV 1000 ML 1,000 ML IV SCH ×3 (00:07→16:49)
[2022-06-10] MEDS: PIPERACILLIN SODIUM/TAZOBACTAM 4.5 GM in NS (IVPB) 100 ML IV SCH ×3 (02:00→17:01)
[2022-06-10 05:44] LABS: BASOPHILS # (AUTO) 0.1 10^3/uL (0.0-0.1); BASOPHILS % (AUTO) 0 % (0-10); EOSINOPHILS # (AUTO) 0.1 10^3/uL (0.0-0.3); EOSINOPHILS % (AUTO) 0 % (0-10); HEMATOCRIT 39 % (40-54); HEMOGLOBIN 13.2 g/dL (13.3-17.7); LYMPHOCYTES # (AUTO) 1.1 10^3/uL (1.0-4.0); LYMPHOCYTES % (AUTO) 6 % (12-44); MEAN CORPUSCULAR HEMOGLOBIN 29 pg (25-34); MEAN CORPUSCULAR HGB CONC 34 g/dL (32-36); MEAN CORPUSCULAR VOLUME 85 fL (80-99); MEAN PLATELET VOLUME 8.3 fL (9.0-12.2); MONOCYTES # (AUTO) 0.8 10^3/uL (0.0-1.0); MONOCYTES % (AUTO) 5 % (0-12); NEUTROPHILS # (AUTO) 15.3 10^3/uL (1.8-7.8); NEUTROPHILS % (AUTO) 86 % (42-75); PLATELET COUNT 415 10^3/uL (130-400); WHITE BLOOD COUNT 17.8 10^3/uL (4.3-11.0)
[2022-06-10 05:52] LABS: CALCIUM 8.5 MG/DL (8.5-10.1)
[2022-06-10 05:56] LABS: CREATININE SERUM 0.79 MG/DL (0.60-1.30)
[2022-06-10 06:08] LABS: ATYPICAL LYMPHOCYTES 1 %; BAND NEUTROPHILS 3 %; LYMPHOCYTES % (MANUAL) 7 %; MONOCYTES % (MANUAL) 3 %; NEUTROPHILS % (MANUAL) 83 %; RBC MORPH NORMAL; REACTIVE LYMPHOCYTES 3 %
--- NOTE | 2022-06-10 09:05 | Consultation - Surgery ---
KYE CAGLE 06/10/22 0905: History of Present Illness History of Present Illness Patient Consulted On(sarai/time) 06/10/22 09:01 Date Seen by Provider: Jun 10, 2022 Time Seen by Provider: 08:15 History of Present Illness Pt resting in bed. He had a laparoscopic appendectomy on 06/03, the appendix was perforated and a EMELY drain was placed. States he has had continued pain since the surgery, but yesterday his pain worsened to a sharp sensation, that radiates into his right shoulder and right lower chest area. States his sister rubbed out his shoulder yesterday, which seemed to help the right shoulder pain. He continues to have RLQ pain that "feels like it is filling a cavity." He began having diarrhea Thursday, but has not noticed any blood. He also has had chills every night since surgery and was unable to eat until POD 3, then progressed to broths. States he had output of EMELY drain until Thursday, there was no output and appeared to be clogged with purulent fluid. He has been urinating normally. Denies n/v, SOB, chest pain, or any other complaints. He has been NPO since midnight. Allergies and Home Medications Allergies Coded Allergies: No Known Drug Allergies (Unverified , 06/03/22) Patient Home Medication List Amoxicillin/Potassium Clav (Amox Tr-K Clv 500-125 mg Tab) 500 Mg-125 Mg Tablet, 1 EA PO TID, (Reported) Entered as Reported by: SCOTT OAKES on 06/09/22 1346 Last Action: Reviewed Discontinued Medications Amoxicillin/Potassium Clav (Augmentin 500-125 Tablet) 500 Mg-125 Mg Tablet, 1 EACH PO TID Discontinued Reason: Duplicate Order Prescribed by: NAMITA NEAL on 06/03/222025 Last Action: Discontinued Hydrocodone Bit/Acetaminophen (HYDROcodone/APAP 5 MG/325 MG TAB) 1 Tab Tab, 1 TAB PO Q8H PRN for PAIN-MODERATE (5-7) Discontinued Reason: Duplicate Order Prescribed by: NAMITA NEAL on 06/03/222025 Last Action: Discontinued Hydrocodone/Acetaminophen (Hydrocodone-Acetamin 5-325 mg) 5 Mg-325 Mg Tablet, 1 EA PO Q8H PRN for PAIN-MODERATE (5-7), (Reported) Discontinued Reason: No Longer Taking Entered as Reported by: SCOTT OAKES on 06/09/22 6856 Last Action: Discontinued Past Fbfcurz-Bxjmso-Xvmedn Hx Patient Social History Smoking Status: Never a Smoker Alcohol Use?: Yes (occassional and socially) Have you traveled recently?: No Surgeries History of Surgeries: Yes Surgeries: Appendectomy Respiratory History of Respiratory Disorde: No Cardiovascular History of Cardiac Disorders: No Neurological History of Neurological Disord: No Genitourinary History of Genitourinary Disor: No Gastrointestinal History of Gastrointestinal Di: No Musculoskeletal History of Musculoskeletal Dis: No Endocrine History of Endocrine Disorders: No HEENT History of HEENT Disorders: No Loss of Vision: Denies Hearing Impairment: Denies Cancer History of Cancer: No Psychosocial History of Psychiatric Problem: No Integumentary History of Skin or Integumenta: No Blood Transfusions History of Blood Disorders: No Family Medical History Significant Family History: Heart Disease (maternal) Review of Systems-General Constitutional: chills, diaphoresis; No fever, No weight loss EENTM: No blurred vision, No double vision Respiratory: No cough, No short of breath Cardiovascular: No chest pain Gastrointestinal: RLQ, abdominal pain (RLQ), diarrhea; No melena, No nausea, No vomiting Genitourinary: No dysuria Musculoskeletal: other (chest pain & right shoulder pain) Skin: other (EMELY drain) Physical Exam-General Problems Physical Exam Vital Signs Vital Signs - First Documented 06/09/22 06/09/22 09:31 12:25 Temp 36.7 Pulse 85 Resp 20 B/P (MAP) 162/88 Pulse Ox 97 O2 Delivery Room Air Capillary Refill : Less Than 3 Seconds General Appearance: WD/WN, no apparent distress Eyes: Bilateral Eye PERRL, Bilateral Eye EOMI HEENT: PERRL/EOMI, pharynx normal Neck: non-tender, supple Respiratory: lungs clear, normal breath sounds, no respiratory distress, no accessory muscle use Cardiovascular: regular rate, rhythm, no gallop, no murmur Peripheral Pulses: 2+ Radial Pulses (R), 2+ Radial Pulses (L) Gastrointestinal: normal bowel sounds, soft, guarding (voluntary and involuntary ), tenderness (diffuse tenderness, but significant TTP of RUQ and RLQ) Back: no CVA tenderness Extremities: no pedal edema, no calf tenderness, normal capillary refill Neurologic/Psychiatric: alert, normal mood/affect, oriented x 3 Skin: normal color, warm/dry, other (mild drainage from umbilical incision. Erythema surrounding EMELY drain. EMELY tubing seems to be clogged with serous material. No drainaged in EMELY drain. ) Lymphatic: no adenopathy (of supraclavicular or axillary LNS) Data Review Labs Laboratory Tests 06/09/22 10:00: White Blood Count 13.6H, Red Blood Count 4.83, Hemoglobin 13.6, Hematocrit 41, Mean Corpuscular Volume 84, Mean Corpuscular Hemoglobin 28, Mean Corpuscular Hemoglobin Concent 33, Red Cell Distribution Width 13.3, Platelet Count 421H, Mean Platelet Volume 8.4L, Immature Granulocyte % (Auto) 4, Neutrophils (%) (Auto) 76H, Lymphocytes (%) (Auto) 11L, Monocytes (%) (Auto) 7, Eosinophils (%) (Auto) 1, Basophils (%) (Auto) 1, Neutrophils # (Auto) 10.4H, Lymphocytes # (Auto) 1.5, Monocytes # (Auto) 1.0, Eosinophils # (Auto) 0.1, Basophils # (Auto) 0.1, Immature Granulocyte # (Auto) 0.6H, Sodium Level 135, Potassium Level 4.1, Chloride Level 97L, Carbon Dioxide Level 25, Anion Gap 13, Blood Urea Nitrogen 9, Creatinine 0.86, Estimat Glomerular Filtration Rate 119, BUN/Creatinine Ratio 10, Glucose Level 100, Calcium Level 9.2, Corrected Calcium 9.7, Total Bilirubin 0.8, Aspartate Amino Transf (AST/SGOT) 74H, Alanine Aminotransferase (ALT/SGPT) 149H, Alkaline Phosphatase 122, Total Protein 7.4, Albumin 3.4 06/10/22 05:35: White Blood Count 17.8H, Red Blood Count 4.62, Hemoglobin 13.2L, Hematocrit 39L, Mean Corpuscular Volume 85, Mean Corpuscular Hemoglobin 29, Mean Corpuscular Hemoglobin Concent 34, Red Cell Distribution Width 13.6, Platelet Count 415H, Mean Platelet Volume 8.3L, Immature Granulocyte % (Auto) 2, Neutrophils (%) (Auto) 86H, Lymphocytes (%) (Auto) 6L, Monocytes (%) (Auto) 5, Eosinophils (%) (Auto) 0, Basophils (%) (Auto) 0, Neutrophils # (Auto) 15.3H, Lymphocytes # (Auto) 1.1, Monocytes # (Auto) 0.8, Eosinophils # (Auto) 0.1, Basophils # (Auto) 0.1, Immature Granulocyte # (Auto) 0.4H, Sodium Level 131L, Potassium Level 4.0, Chloride Level 99, Carbon Dioxide Level 19L, Anion Gap 13, Blood Urea Nitrogen 8, Creatinine 0.79, Estimat Glomerular Filtration Rate 123, BUN/Creatinine Ratio 10, Glucose Level 93, Calcium Level 8.5, Neutrophils % (Manual) 83, Lymphocytes % (Manual) 7, Monocytes % (Manual) 3, Band Neutrophils 3, Atypical Lymphocytes 1, Reactive Lymphocytes 3, Blood Morphology Comment NORMAL Assessment/Plan Assessment/Plan Assessment/Plan S/p appendectomy (06/03) - post op infection and/or abscess Abdominal CT shows there is a collection of fluid inferior to the liver measuring 4.9 cm which may represent early abscess formation. There is a small right-sided effusion with bibasilar atelectasis. Vitals are stable at the time. Continue IV abx, fluids and pain managment. Will continue to monitor. Clear diet. May need to take to OR if signs of worsening infection. NAMITA NEAL DO 06/10/222030: History of Present Illness History of Present Illness Time Seen by Provider: 11:39 History of Present Illness Surgery asked to consult/admit regarding RLQ abd pain and Leukocytosis. I was not informed that pt was being admitted to me, he got to the floor yesterday at 14:41 and I got a text at 17:45 asking about ABX. I did speak with Dr. Hastings today about more communication. HPI per ED: 31-year-old male presents emergency department today for right lower abdominal pain, right shoulder pain. He had laparoscopic appendectomy for a partially perforated appendix on 06/03. He states he has had continued pain in his right lower abdomen since the procedure. Record review shows he had a partially perforated appendix and a EMELY drain was placed. He states in his right lower abdomen is dull throbbing without radiation. New pain in his right shoulder as well. He has chills at home but has not taken her temperature. He is having bowel movements. No vomiting. He stopped taking pain medications a couple days ago as he thought it was responsible for his chills. No urinary symptoms and urinating without difficulty. He is taking antibiotics as prescribed on discharge When I saw pt he was lying in bed and complained of diffuse abdominal pain; around drain also. He states it has gotten worse over past few days and associated with loss of appetite. He rated pain as 7 out of 10 when I asked. Allergies and Home Medications Allergies Coded Allergies: No Known Drug Allergies (Unverified , 06/03/22) Patient Home Medication List Home Medication List Reviewed: Yes Amoxicillin/Potassium Clav (Amox Tr-K Clv 500-125 mg Tab) 500 Mg-125 Mg Tablet, 1 EA PO TID, (Reported) Entered as Reported by: SCOTT OAKES on 06/09/221345 Last Action: Reviewed Discontinued Medications Amoxicillin/Potassium Clav (Augmentin 500-125 Tablet) 500 Mg-125 Mg Tablet, 1 EACH PO TID Discontinued Reason: Duplicate Order Prescribed by: NAMITA NEAL on 06/03/222025 Last Action: Discontinued Hydrocodone Bit/Acetaminophen (HYDROcodone/APAP 5 MG/325 MG TAB) 1 Tab Tab, 1 TAB PO Q8H PRN for PAIN-MODERATE (5-7) Discontinued Reason: Duplicate Order Prescribed by: NAMITA NEAL on 06/03/222025 Last Action: Discontinued Hydrocodone/Acetaminophen (Hydrocodone-Acetamin 5-325 mg) 5 Mg-325 Mg Tablet, 1 EA PO Q8H PRN for PAIN-MODERATE (5-7), (Reported) Discontinued Reason: No Longer Taking Entered as Reported by: SCOTT OAKES on 06/09/221345 Last Action: Discontinued Past Cfvllfu-Iflome-Frumph Hx Patient Social History Smoking Status: Never a Smoker Alcohol Use?: Yes (occassional and socially) Surgeries History of Surgeries: Yes Surgeries: Appendectomy Respiratory History of Respiratory Disorde: No Cardiovascular History of Cardiac Disorders: No Neurological History of Neurological Disord: No Genitourinary History of Genitourinary Disor: No Gastrointestinal History of Gastrointestinal Di: Yes Gastrointestinal Disorders: Abdominal Hernia (umbilical) Musculoskeletal History of Musculoskeletal Dis: No Endocrine History of Endocrine Disorders: No HEENT History of HEENT Disorders: No Loss of Vision: Denies Hearing Impairment: Denies Cancer History of Cancer: No Psychosocial History of Psychiatric Problem: No Family Medical History Significant Family History: Heart Disease (maternal) Review of Systems-General Constitutional: chills, diaphoresis; No fever, No weight loss EENTM: No blurred vision, No double vision Respiratory: No cough, No short of breath Cardiovascular: No chest pain, No palpitations Gastrointestinal: RLQ, abdominal pain (RLQ), diarrhea; No melena, No nausea, No vomiting Genitourinary: No dysuria, No hematuria Musculoskeletal: No joint pain, No joint swelling; other (chest pain & right shoulder pain) Skin: No change in color, No change in hair/nails; other (EMELY drain) Psychiatric/Neurological: Denies Anxiety, Denies Depressed, Denies Seizure Physical Exam-General Problems Physical Exam General Appearance: WD/WN, moderate distress Eyes: Bilateral Eye PERRL, Bilateral Eye EOMI HEENT: pharynx normal; No scleral icterus (R), No scleral icterus (L) Neck: non-tender, supple Respiratory: lungs clear, normal breath sounds, no respiratory distress, no accessory muscle use Cardiovascular: regular rate, rhythm, no murmur Gastrointestinal: normal bowel sounds, guarding (voluntary and involuntary ), tenderness (diffuse tenderness, but significant TTP of RUQ and RLQ), hernia (umbilical) Back: no CVA tenderness, no vertebral tenderness Extremities: no pedal edema, no calf tenderness, normal capillary refill Neurologic/Psychiatric: alert, oriented x 3 Skin: normal color, warm/dry, other (mild drainage from umbilical incision. Erythema surrounding EMELY drain. EMELY tubing seems to be clogged with serous material. No drainaged in EMELY drain. ) Lymphatic: no adenopathy (of supraclavicular or axillary LNS) Data Review Radiology Date of Exam:06/09/22 CT ABD/PELV W (APPENDICITIS) EXAMINATION: CT abdomen and pelvis with intravenous contrast. TECHNIQUE: Multiple contiguous axial images were obtained through the abdomen and pelvis after the uneventful administration of intravenous contrast. All CT scans use one or more of the following dose optimizing techniques: automated exposure control, MA and/or KvP adjustment based on patient size and exam type or iterative reconstruction. HISTORY: Right lower quadrant pain. Recent appendectomy. COMPARISON: 06/03/2022. FINDINGS: The heart is unremarkable. Small effusion is seen on the right. Patchy bibasilar atelectasis is present. Bilateral nonobstructing renal calculi are seen. No evidence of hydronephrosis or obstructing calculi. No solid renal mass. The liver, spleen, pancreas, and adrenal glands have a normal appearance. The gallbladder is unremarkable. There is no pathologically enlarged mesenteric or retroperitoneal adenopathy. Postsurgical changes of appendectomy are visualized with a surgical drain in the right hemiabdomen. There is associated inflammation and edema in the right hemiabdomen. A collection of fluid is seen inferior to the liver measuring approximately 4.9 x 1.5 cm. No evidence of free air. No bowel obstruction. Bowel wall thickening is seen involving the ascending colon and distal ileum. No acute osseous abnormalities. Ureters and bladder are grossly normal. There is no free air, loculated collection, or adenopathy in the pelvis. IMPRESSION: 1. Interval postsurgical changes of appendectomy. There is a collection of fluid inferior to the liver measuring 4.9 cm which may represent early abscess formation. Additional inflammation and edema is seen in the right hemiabdomen. A surgical drain is in place. Recommend continued followup. 2. Reactive bowel wall thickening involving the ascending colon and distal ileum. No bowel obstruction. No free air. 3. Bilateral nonobstructing renal calculi. 4. Small right-sided effusion with bibasilar atelectasis. Dictated by: Dictated on workstation # [id number] Dict: 06/09/22 1027 Trans: 06/09/22 1040 [facility] [id number] Interpreted by: MARLENE CAO DO Electronically signed by: MARLENE CAO DO 06/09/22 1040 Assessment/Plan Assessment/Plan Assessment/Plan RLQ pain Leukocytosis Atelectasis Pt appears to be in moderate distress because of pain, I reviewed the CT images myself and then went over them again with radiologist. He is not convinced that fluid collection around liver is abscess and even if it is; "too small to drain at this time". I will add Flagyl to his medications, keep him NPO, pain control and anti-emetics as needed. I talked with pt regarding options; at this time I think the best thing to do is watch and wait, surgery would be too much. However, if he gets worse he may need a Diagnostic Laparoscopy and possibly open Exploratory Laparotomy. He understood and all questions answered to his satisfaction. I also encouraged him to ambulate and use the IS. Supervisory-Addendum Brief Verification & Attestation Participated in pt care: history, MDM, physical Personally performed: exam, history, MDM, supervision of care Care discussed with: Medical Student Procedures: n/a Verification and Attestation of Medical Student E/M Service A medical student performed and documented this service. I then reviewed and verified all information documented by the medical student and made modifications to such information, when appropriate. I personally performed a physical exam, medical decision making and then discussed any differences between the notes and made revisions as necessary to create one note. Namita Neal , 06/10/22 , 20:38 KYE CAGLE Jun 10, 2022 09:05 NAMITA NEAL DO Jun 10, 2022 20:31
[2022-06-10] MEDS: metroNIDAZOLE 500MG/100ML IVPB 100 ML IV SCH (21:43)
[2022-06-11] MEDS: NS IV 1000 ML 1,000 ML IV SCH ×4 (00:28→19:49)
[2022-06-11] MEDS: PIPERACILLIN SODIUM/TAZOBACTAM 4.5 GM in NS (IVPB) 100 ML IV SCH ×3 (02:21→17:49)
[2022-06-11 03:34] VITALS: BP 119/67
--- NOTE | 2022-06-11 07:58 | Progress Note - Surgery ---
KYE CAGLE 06/11/22 0758: Subjective Date Seen by a Provider: Jun 11, 2022 Subjective/Events-last exam Pt resting comfortably in bed. States his pain was well controlled throughout the night until about 0630 it was a 10/10. Now his pain is controlled at 6/10. He denies fever, chills, night sweats, cough, N/V, chest pain, or any other sx. He is tolerating a liquid diet, urinating, and having normal bowel movements. Review of Systems General: No Chills, No Night Sweats HEENT: No Visual Changes Pulmonary: No Dyspnea, No Cough Cardiovascular: No: Chest Pain Gastrointestinal: Abdominal Pain (Right sided); No: Nausea, Vomiting Genitourinary: Retention Objective Exam Vital Signs Date Time Temp Pulse Resp B/P (MAP) Pulse Ox O2 Delivery O2 Flow Rate FiO2 06/11/22 03:34 36.7 72 18 119/67 (84) 96 Room Air 06/10/22 23:25 36.2 77 18 124/70 (88) 95 Room Air 06/10/22 20:15 94 Room Air 06/10/22 19:58 36.6 82 18 129/66 (87) 97 Room Air 06/10/22 16:00 36.5 81 18 126/68 (87) 96 Room Air 06/10/22 11:52 36.9 93 18 110/58 (75) 94 Room Air 06/10/22 08:00 94 Room Air I & O 06/11/22 07:00 Intake Total 2990 ml Output Total 10 ml Balance 2980 ml Capillary Refill : Less Than 3 Seconds General Appearance: No Apparent Distress, WD/WN HEENT: PERRL/EOMI, Pharynx Normal Neck: Non Tender, Supple Respiratory: Lungs Clear, Normal Breath Sounds, No Accessory Muscle Use, No Respiratory Distress Cardiovascular: Regular Rate, Rhythm, No Gallop, No Murmur Peripheral Pulses: 2+ Radial Pulses (R), 2+ Radial Pulses (L) Gastrointestinal: normal bowel sounds, soft; No guarding; tenderness (Diffuse tenderness improved from yesterday. Still has significant RUQ and RLQ tenderness. ), hernia (umbilical), other (Umbilical incision had serous drainage during the night and this am. EMELY drain in place, with mild surrounding erythema and serous drainage in tubing and minimal amount in drain. ) Extremity: Non Tender, No Calf Tenderness, No Pedal Edema Neurologic/Psychiatric: Alert, Oriented x3, Normal Mood/Affect Skin: Normal Color, Warm/Dry Lymphatic: No Adenopathy (of supraclavicular or axillary LNs) Assessment/Plan Assessment/Plan Assessment/Plan RLQ pain Leukocytosis Atelectasis Pt pain better controlled. Pt is still agreeable with plan to monitor labs and wait on surgery. However, if he gets worse he may need a Diagnostic Laparoscopy and possibly open Exploratory Laparotomy. Morning labs pending at this time. Continue IV abx and flagyl. I also encouraged him to ambulate and use the IS. JUAN ALBERTOZAKIYANAMITA B DO 06/11/22 1700: Subjective Time Seen by a Provider: 14:19 Subjective/Events-last exam Pt seen and examined, states he finally feels better; "better even than before I had surgery, when it first started". He did not have any chills last night; which is first time since surgery. Tolerating clears. Review of Systems General: No Chills, No Night Sweats Pulmonary: No Dyspnea, No Cough Cardiovascular: No: Chest Pain Gastrointestinal: No: Nausea, Vomiting, Abdominal Pain (Right sided) Objective Exam General Appearance: No Apparent Distress, WD/WN HEENT: PERRL/EOMI, Moist Mucous Membranes Respiratory: Lungs Clear, Normal Breath Sounds, No Accessory Muscle Use, No Respiratory Distress Cardiovascular: Regular Rate, Rhythm, No Murmur Gastrointestinal: normal bowel sounds, soft; No guarding; tenderness (Diffuse tenderness improved from yesterday. Still has significant RUQ and RLQ tenderness. ), hernia (umbilical), other (Umbilical incision had serous drainage during the night and this am. EMELY drain in place, with mild surrounding erythema and serous drainage in tubing and minimal amount in drain. ) Assessment/Plan Assessment/Plan Assessment/Plan RLQ pain Leukocytosis Atelectasis Pt pain better controlled. Pt is still agreeable with plan to monitor labs and wait on surgery. However, if he gets worse he may need a Diagnostic Laparoscopy and possibly open Exploratory Laparotomy. Morning labs pending at this time. Continue IV abx and flagyl. I also encouraged him to ambulate and use the IS. Supervisory-Addendum Brief Verification & Attestation Participated in pt care: history, MDM, physical Personally performed: exam, history, MDM, supervision of care Care discussed with: Medical Student Procedures: n/a Verification and Attestation of Medical Student E/M Service A medical student performed and documented this service. I then reviewed and verified all information documented by the medical student and made modifications to such information, when appropriate. I personally performed a physical exam, medical decision making and then discussed any differences between the notes and made revisions as necessary to create one note. Namita Foster , 06/11/22 , 16:59 KYE CAGLE Jun 11, 2022 07:58 NAMITA FOSTER DO Jun 11, 2022 17:00
[2022-06-11 08:31] VITALS: BP 126/71
[2022-06-11] MEDS: metroNIDAZOLE 500MG/100ML IVPB 100 ML IV SCH ×2 (09:34→22:11)
[2022-06-11 11:08] LABS: BASOPHILS # (AUTO) 0.1 10^3/uL (0.0-0.1); BASOPHILS % (AUTO) 1 % (0-10); EOSINOPHILS # (AUTO) 0.2 10^3/uL (0.0-0.3); EOSINOPHILS % (AUTO) 1 % (0-10); HEMATOCRIT 42 % (40-54); HEMOGLOBIN 13.3 g/dL (13.3-17.7); LYMPHOCYTES # (AUTO) 1.2 10^3/uL (1.0-4.0); LYMPHOCYTES % (AUTO) 8 % (12-44); MEAN CORPUSCULAR HEMOGLOBIN 28 pg (25-34); MEAN CORPUSCULAR HGB CONC 32 g/dL (32-36); MEAN CORPUSCULAR VOLUME 87 fL (80-99); MEAN PLATELET VOLUME 8.3 fL (9.0-12.2); MONOCYTES # (AUTO) 0.7 10^3/uL (0.0-1.0); MONOCYTES % (AUTO) 4 % (0-12); NEUTROPHILS # (AUTO) 12.2 10^3/uL (1.8-7.8); NEUTROPHILS % (AUTO) 82 % (42-75); PLATELET COUNT 381 10^3/uL (130-400); WHITE BLOOD COUNT 14.9 10^3/uL (4.3-11.0)
[2022-06-11 11:32] LABS: ALBUMIN 3.2 GM/DL (3.2-4.5); POTASSIUM 3.5 MMOL/L (3.6-5.0)
[2022-06-11 11:33] LABS: CALCIUM 8.4 MG/DL (8.5-10.1)
[2022-06-11 11:36] LABS: BILIRUBIN,TOTAL 0.6 MG/DL (0.1-1.0)
[2022-06-11 11:38] LABS: CREATININE SERUM 0.81 MG/DL (0.60-1.30)
[2022-06-11 12:04] VITALS: BP 110/71
[2022-06-11 16:18] VITALS: BP 120/70
[2022-06-11 19:31] VITALS: BP 129/67
[2022-06-12 00:13] VITALS: BP 117/71
[2022-06-12] MEDS: PIPERACILLIN SODIUM/TAZOBACTAM 4.5 GM in NS (IVPB) 100 ML IV SCH (02:22)
[2022-06-12 04:12] VITALS: BP 108/71
[2022-06-12] MEDS: NS IV 1000 ML 1,000 ML IV SCH ×2 (04:35→10:05)
--- NOTE | 2022-06-12 07:53 | Progress Note - Surgery ---
YARI ANN 06/12/22 0753: Subjective Date Seen by a Provider: Jun 12, 2022 Time Seen by a Provider: 07:10 Subjective/Events-last exam Patient is doing better. Abdominal pain still present on RUQ and RLQ but has improved to a 2 or 3 out of 10 where he rated it a 6/10 yesterday. Patient is ambulating to use the restroom and is using the IS frequently. He had a BM last night and denied having blood in stool. He denied any feeling of nausea. He does report pain at incision sites. There is still drainage from the EMELY drain. Review of Systems General: No Chills Pulmonary: No Dyspnea, No Cough, No Pleuritic Chest Pain Cardiovascular: No: Chest Pain Gastrointestinal: Abdominal Pain; No: Nausea, Vomiting Musculoskeletal: No: neck pain Objective Exam Vital Signs Date Time Temp Pulse Resp B/P (MAP) Pulse Ox O2 Delivery O2 Flow Rate FiO2 06/12/22 04:12 36.1 68 18 108/71 (83) 97 Room Air 06/12/22 00:13 36.4 70 22 117/71 (86) 98 Room Air 06/11/22 20:00 96 Room Air 06/11/22 19:31 36.7 78 18 129/67 (87) 96 Room Air 06/11/22 16:18 36.0 70 19 120/70 (87) 97 Room Air 06/11/22 12:04 36.6 82 17 110/71 (84) 97 Room Air 06/11/22 08:31 36.0 86 18 126/71 (89) 94 Room Air I & O 06/12/22 07:00 Intake Total 6487 ml Balance 6487 ml Capillary Refill : Less Than 3 Seconds General Appearance: No Apparent Distress Neck: Non Tender; No Lymphadenopathy (L), No Lymphadenopathy (R) Respiratory: Lungs Clear, Normal Breath Sounds, No Accessory Muscle Use, No Respiratory Distress Cardiovascular: Regular Rate, Rhythm, No Murmur Peripheral Pulses: 2+ Dorsalis Pedis (R), 2+ Left Dors-Pedis (L), 2+ Radial Pulses (R), 2+ Radial Pulses (L) Gastrointestinal: soft, tenderness (table tender in RUQ and RLQ), other (Serous drainage from EMELY drain . reports tenderness around drain site) Extremity: No Pedal Edema, Other (sensation to LE intact b/l. 2+ dorsalis pedis pulse b/l) Neurologic/Psychiatric: Alert, Oriented x3, Normal Mood/Affect Results Lab Laboratory Tests 06/11/22 11:00: White Blood Count 14.9H, Red Blood Count 4.75, Hemoglobin 13.3, Hematocrit 42, Mean Corpuscular Volume 87, Mean Corpuscular Hemoglobin 28, Mean Corpuscular Hemoglobin Concent 32, Red Cell Distribution Width 13.7, Platelet Count 381, Mean Platelet Volume 8.3L, Immature Granulocyte % (Auto) 4, Neutrophils (%) (Auto) 82H, Lymphocytes (%) (Auto) 8L, Monocytes (%) (Auto) 4, Eosinophils (%) (Auto) 1, Basophils (%) (Auto) 1, Neutrophils # (Auto) 12.2H, Lymphocytes # (Auto) 1.2, Monocytes # (Auto) 0.7, Eosinophils # (Auto) 0.2, Basophils # (Auto) 0.1, Immature Granulocyte # (Auto) 0.6H, Sodium Level 140, Potassium Level 3.5L, Chloride Level 104, Carbon Dioxide Level 23, Anion Gap 13, Blood Urea Nitrogen 6L, Creatinine 0.81, Estimat Glomerular Filtration Rate 122, BUN/Creatinine Ratio 7, Glucose Level 80, Calcium Level 8.4L, Corrected Calcium 9.0, Total Bilirubin 0.6, Aspartate Amino Transf (AST/SGOT) 29, Alanine Aminotransferase (ALT/SGPT) 81H, Alkaline Phosphatase 104, Total Protein 7.0, Albumin 3.2 Assessment/Plan Assessment/Plan Assessment/Plan RLQ+RUQ pain Leukocytosis Atelectasis Patient RUQ and RLQ pain is well controlled with morphine and lortab. WBC count is trending downward from 14.9 to 13.3, will continue to track with AM labs. Discontinue augmentin, start ceftriaxone IV and continue on IV flagyl. Patient said he will continue to use his IS. KENDELL FOSTER DO 06/12/22 1306: Subjective Time Seen by a Provider: 12:41 Subjective/Events-last exam Pt seen and examined; states his abdominal pain is better, tolerating diet and ambulating. Review of Systems General: No Chills Pulmonary: No Dyspnea, No Cough Cardiovascular: No: Chest Pain Gastrointestinal: Abdominal Pain; No: Nausea, Vomiting Objective Exam General Appearance: No Apparent Distress, WD/WN HEENT: PERRL/EOMI Respiratory: Lungs Clear, Normal Breath Sounds, No Accessory Muscle Use, No Respiratory Distress Cardiovascular: Regular Rate, Rhythm, No Murmur Gastrointestinal: soft, tenderness (table tender in RUQ and RLQ - but minimal), other (Serous drainage from EMELY drain . reports tenderness around drain site) Neurologic/Psychiatric: Alert, Oriented x3, Normal Mood/Affect Assessment/Plan Assessment/Plan Assessment/Plan RLQ+RUQ pain Leukocytosis Atelectasis Patient RUQ and RLQ pain is well controlled with morphine and lortab. WBC count is trending downward from 14.9 to 13.3. Discontinue Zosyn, start ceftriaxone IV and continue on IV flagyl. Patient said he will continue to use his IS. Will d/c home Supervisory-Addendum Brief Verification & Attestation Participated in pt care: history, MDM, physical Personally performed: exam, history, MDM, supervision of care Care discussed with: Medical Student Procedures: n/a Verification and Attestation of Medical Student E/M Service A medical student performed and documented this service. I then reviewed and verified all information documented by the medical student and made modifications to such information, when appropriate. I personally performed a physical exam, medical decision making and then discussed any differences between the notes and made revisions as necessary to create one note. Kendell Foster , 06/12/22 , 13:06 YARI ANN Jun 12, 2022 07:53 KENDELL FOSTER DO Jun 12, 2022 13:06
[2022-06-12 08:04] VITALS: BP 127/79
[2022-06-12] MEDS: metroNIDAZOLE 500MG/100ML IVPB 100 ML IV SCH (09:25)
[2022-06-12 10:17] LABS: BASOPHILS # (AUTO) 0.1 10^3/uL (0.0-0.1); BASOPHILS % (AUTO) 1 % (0-10); EOSINOPHILS # (AUTO) 0.2 10^3/uL (0.0-0.3); EOSINOPHILS % (AUTO) 1 % (0-10); HEMATOCRIT 42 % (40-54); HEMOGLOBIN 13.5 g/dL (13.3-17.7); LYMPHOCYTES # (AUTO) 1.1 10^3/uL (1.0-4.0); LYMPHOCYTES % (AUTO) 8 % (12-44); MEAN CORPUSCULAR HEMOGLOBIN 28 pg (25-34); MEAN CORPUSCULAR HGB CONC 33 g/dL (32-36); MEAN CORPUSCULAR VOLUME 87 fL (80-99); MONOCYTES # (AUTO) 0.5 10^3/uL (0.0-1.0); MONOCYTES % (AUTO) 4 % (0-12); NEUTROPHILS % (AUTO) 82 % (42-75); PLATELET COUNT 527 10^3/uL (130-400); WHITE BLOOD COUNT 13.3 10^3/uL (4.3-11.0)
[2022-06-12 10:25] LABS: ALBUMIN 3.4 GM/DL (3.2-4.5); POTASSIUM 3.5 MMOL/L (3.6-5.0)
[2022-06-12 10:26] LABS: CALCIUM 8.9 MG/DL (8.5-10.1)
[2022-06-12 10:28] LABS: TOTAL PROTEIN 7.6 GM/DL (6.4-8.2)
[2022-06-12 10:30] LABS: BILIRUBIN,TOTAL 0.5 MG/DL (0.1-1.0)
[2022-06-12 10:31] LABS: CREATININE SERUM 0.83 MG/DL (0.60-1.30)
[2022-06-12] MEDS ORDERED: cefTRIAXone 2,000 MG/NS 50 ML IVPB IV SCH ×2 (11:00)
[2022-06-12 11:46] VITALS: BP 126/80
[2022-06-12] MEDS ORDERED: ACHYD1T PO (13:09)
[2022-06-12] MEDS ORDERED: CEFD300C3 PO (13:09)
[2022-06-12] MEDS ORDERED: METR-145 PO (13:09)
--- NOTE | 2022-06-12 13:10 | Discharge Inst-Surgical ---
Discharge Inst-Surgical Depart Medication/Instructions New, Converted or Re-Newed RX: Transmitted to Pharmacy Patient Instructions Follow up Appt: Make appointment for 1 week. [phone] Instructions: No lifting greater than 20 pounds. No strenuous activity. May shower in 24 hours, no tub bath or soaking. Use incentive spirometer at home as directed. No Smoking Skin/Wound Care: May remove bandages in am. You need to leave the Dermabond on incision it will fall off on it's own. Symptoms to Report: Appetite Changes, Extremity Discoloration, Numbness/Tingling, Swelling Increased, Bleeding Excessive, Eyesight Changes, Pain Increased, Urine Color Change, Constipation(Persistent), Fever over 101 degree F, Pain/Pressure in chest, Urinating Difficulty, Cough Up/Vomit Blood, Heart Beat Irreg/Pounding, Pain/Pressure in jaw, Cramps in feet or legs, Lightheadedness, Pain/Pressure in shoulder, Diarrhea(Persistent), Memory Changes Suddenly, Questions/Concerns, Weight gain consecutive days, Dizziness/Fainting, Nausea/Vomiting, Shortness of Breath, Weight gain over 2 pounds If questions or concerns contact your physician Or seek help at emergency department. Activity Activity as Tolerated: Yes Activity Instructions: Avoid Stress to Incision Driving Instructions: No Driving/Refer to Dr. Flower Discharge Diet: No Restrictions Diet After 24 Hours: Clear Liquid if Nauseous If Any Problems/Questions/Issu: Contact Your Physician, Go to Emergency Room Skin/Wound Care Infection Signs and Symptoms: Increased Redness, Foul Odor of Wound, Increased Drainage, Skin Itchy or Has a Rash, Increased Swelling, Temperature Above 101 F Wound Care Comment: EMELY drain teaching Bathing Instructions: NAMITA Georges DO Jun 12, 2022 13:10
[2022-06-12 15:15] VITALS: BP 126/80
--- NOTE | 2022-06-19 14:21 | Physician Query Clarification ---
PQ-Further Specificity Admission/Discharge Admission Date: Jun 09, 2022 at 12:14 Discharge Date: Jun 12, 2022 at 15:15 Dr. Foster, The medical record reflects the following clinical scenario: History/Risk Factors: s/p appendectomy Clinical Findings: CT scan - There is a collection of fluid inferior to the liver measuring 4.9 cm which may represent early abscess formation CT images myself and then went over them again with radiologist. He is not convinced that fluid collection around liver is abscess Treatment: EMELY drain, IV Piperacillin, IV Ceftriaxone Question: Can you further specify whether or not the patient has postop infection/abscess per the clinical indicators above? Please document a response in the Progress Notes or Discharge Summary. 1. yes, postop infection/abscess 2. no postop infection/abscess. postop pain only 3. Other, with explanation of the clinical findings. 4. Clinically undetermined, no explanation for the clinical findings. PHYSICIAN RESPONSE Can you specify per above: 2 (Pt has fluid, that is most likely normal post- operative fluid.) In responding to this query, please exercise your independent professional judgment. The purpose of this communication is to more accurately reflect the complexity of your patients condition. The fact that a question is asked does not imply that any particular answer is desired or expected. Thank you for your timely response to this clarification. Requestors name: [facility] THIS PHYSICIAN QUERY FORM IS A PERMANENT PART OF THE MEDICAL RECORD [facility] Jun 19, 2022 14:21 NAMITA FOSTER DO Jun 23, 2022 14:50
--- NOTE | 2022-06-24 13:28 | Discharge Summary ---
Diagnosis/Chief Complaint Date of Admission Jun 09, 2022 at 12:14 Date of Discharge Jun 12, 2022 at 15:15 Admission Diagnosis Admission Diagnosis RLQ pain Leukocytosis Atelectasis Discharge Diagnosis RLQ pain Leukocytosis Atelectasis Reason Hospital Visit Surgery asked to consult/admit regarding RLQ abd pain and Leukocytosis. I was not informed that pt was being admitted to [place], he got to the floor yesterday at 14:41 and I got a text at 17:45 asking about ABX. I did speak with Dr. Hastings today about more communication. HPI per ED: 31-year-old male presents emergency department today for right lower abdominal pain, right shoulder pain. He had laparoscopic appendectomy for a partially perforated appendix on 06/03. He states he has had continued pain in his right lower abdomen since the procedure. Record review shows he had a partially perforated appendix and a EMELY drain was placed. He states in his right lower abdomen is dull throbbing without radiation. New pain in his right shoulder as well. He has chills at home but has not taken her temperature. He is having bowel movements. No vomiting. He stopped taking pain medications a couple days ago as he thought it was responsible for his chills. No urinary symptoms and urinating without difficulty. He is taking antibiotics as prescribed on discharge When I saw pt he was lying in bed and complained of diffuse abdominal pain; angel und drain also. He states it has gotten worse over past few days and associated with loss of appetite. He rated pain as 7 out of 10 when I asked. Discharge Summary Procedures: none Consultations none Discharge Physical Examination Allergies: Coded Allergies: No Known Drug Allergies (Unverified , 06/03/22) General Appearance: Alert, Oriented X3 Respiratory: Clear to Auscultation, Normal Air Movement Cardiovascular: Regular Rate, No Murmurs Abdominal: Normal Bowel Sounds, Soft Hospital Course Patient is a 31-year-old male who presented on 06/09 to the ER and was admitted on 06/10/2022. He came in with right lower quadrant pain he had leukocytosis and the atelectasis appear to be in some distress. He was started on IV antibiotics CT showed some fluid around the liver, question about possible abscess the rad iologist reviewed it did not think this was an abscess. Patient was kept on liquids, IV antibiotics, pain control, anti-emetics as needed. He slowly improved over the next day and a half and felt good enough looked better less pain doing well on medications tolerating diet. He was then discharged home in stable condition to follow-up in the office in 1 week. Discharge Instructions to patient/family Please see electronic discharge instructions given to patient. Discharge Medications Reviewed and agree with Discharge Medication list on patient's Discharge Instruction sheet NAMITA NEAL DO Jun 24, 2022 13:28
== END 2022-06-12 15:15 | disposition home or self-care (01) | DRG 948 ==
LOC: EDUNIT# 09:24 → ER 09:26 → OBSVTOIN 12:14 → 4TH 12:14
PROVIDERS: ADMIT Surgery; ATTEND Surgery
DX: G89.18 Other acute postprocedural pain (principal); J98.11 Atelectasis; R10.31 Right lower quadrant pain; M25.511 Pain in right shoulder
CPT/HCPCS: 36415; 74177; 80048; 80053; 85007; 85025; 85027; 96361; 96365; 96375

== ENCOUNTER 2022-07-04 20:10 | Inpatient (IN) | payer BC ==
[~2022-07-04] VITALS: Ht 185.4 cm; Wt 92.0 kg
[~2022-07-04 20:10] MED LIST changes: +ACHYD1T PO; +AMOX1TAB11 PO; +CEFD300C3 PO; +METR-145 PO
--- NOTE | 2022-07-04 20:40 | ED Abdominal Pain ---
General Stated Complaint: ABD PAIN/NO APPETITE/HEADACHE/NAUSEA/DIARRHEA Source of Information: Patient Exam Limitations: No Limitations History of Present Illness Date Seen by Provider: Jul 04, 2022 Time Seen by Provider: 20:24 Initial Comments Patient to the ER by private conveyance from home with chief complaint of abdominal pain left lower quadrant, suprapubic and right lower quadrant radiating up towards his right upper quadrant since Thursday, 2 days ago. He has not taken anything for the pain. He has had decreased appetite nausea without vomiting and chills but no fevers. He has no rash. He had his appendix out by Dr. Neal 4 weeks ago. He had his last meal yesterday and had an apple today around 3:00. He has had loose watery stools. No blood in his stools. No emesis. No other abdominal surgeries. Unremarkable medical history otherwise. His appendix was partially perforated on 06/03/2022 and he had a EMELY drain placed. He was here 3 weeks ago in the ER and follow-up with same complaint of symptoms. At that time the patient had unremarkable labs and a CT showing early abscess formation near his liver and the patient was admitted under the care of Dr. Neal and discharged 2 days later. Allergies and Home Medications Allergies Coded Allergies: No Known Drug Allergies (Unverified , 06/03/22) Patient Home Medication List Home Medication List Reviewed: Yes Cefdinir (Cefdinir) 300 Mg Capsule, 300 MG PO BID Prescribed by: NAMITA NEAL on 06/12/22 1309 Hydrocodone Bit/Acetaminophen (HYDROcodone/APAP 10/325 TABLET) 1 Ea Tab, 1 EA PO Q6H PRN for PAIN-MODERATE (5-7) Prescribed by: NAMITA NEAL on 06/12/22 1309 Metronidazole (Metronidazole) 500 Mg Tablet, 500 MG PO TID Prescribed by: NAMITA NEAL on 06/12/22 1309 Review of Systems Review of Systems Constitutional: No chills, No diaphoresis EENTM: No Blurred Vision, No Double Vision Respiratory: Denies Cough, Denies Shortness of Air Cardiovascular: Denies Chest Pain, Denies Lightheadedness Gastrointestinal: Denies Constipated, Denies Diarrhea Genitourinary: Denies Discharge, Denies Drainage Musculoskeletal: No back pain, No joint pain All Other Systems Reviewed Negative Unless Noted: Yes Past Rulzert-Koniex-Yccfrh Hx Patient Social History Tobacco Use?: No Use of E-Cig and/or Vaping dev: No Substance use?: No Past Medical History Surgery/Hospitalization HX: APPENDECTOMY Surgeries: Yes Appendectomy Respiratory: No Currently Using CPAP: No Currently Using BIPAP: No Cardiac: No Neurological: No Genitourinary: No Gastrointestinal: Yes Abdominal Hernia Musculoskeletal: No Endocrine: No HEENT: No Loss of Vision: Denies Hearing Impairment: Denies Cancer: No Psychosocial: No Integumentary: No Blood Disorders: No Family Medical History Heart Disease Physical Exam Vital Signs Vital Signs - First Documented 07/04/22 20:20 Temp 37.4 Pulse 101 Resp 16 B/P (MAP) 149/92 (111) Pulse Ox 100 O2 Delivery Room Air Capillary Refill : Height/Weight/BMI Height: '" Weight: lbs. oz. kg; 28.07 BMI Method: General Appearance: WD/WN, mild distress HEENT: PERRL/EOMI, pharynx normal Neck: full range of motion, normal inspection Respiratory: normal breath sounds, no respiratory distress, no accessory muscle use Cardiovascular: normal peripheral pulses, regular rate, rhythm Gastrointestinal: soft, abnormal bowel sounds (Quiescent), tenderness (Right upper quadrant and right lower quadrant as well as left lower quadrant) Neurologic/Psychiatric: alert, normal mood/affect, oriented x 3 Skin: normal color, warm/dry Progress/Results/Core Measures Results/Orders Lab Results Laboratory Tests Test 07/04/22 20:30 07/04/22 20:40 Range/Units White Blood Count 12.0 H 4.3-11.0 10^3/uL Red Blood Count 5.18 4.30-5.52 10^6/uL Hemoglobin 14.3 13.3-17.7 g/dL Hematocrit 42 40-54 % Mean Corpuscular Volume 82 80-99 fL Mean Corpuscular Hemoglobin 28 25-34 pg Mean Corpuscular Hemoglobin Concent 34 32-36 g/dL Red Cell Distribution Width 12.4 10.0-14.5 % Platelet Count 372 130-400 10^3/uL Mean Platelet Volume 8.3 L 9.0-12.2 fL Immature Granulocyte % (Auto) 1 % Neutrophils (%) (Auto) 80 H 42-75 % Lymphocytes (%) (Auto) 12 12-44 % Monocytes (%) (Auto) 7 0-12 % Eosinophils (%) (Auto) 0 0-10 % Basophils (%) (Auto) 0 0-10 % Neutrophils # (Auto) 9.6 H 1.8-7.8 10^3/uL Lymphocytes # (Auto) 1.4 1.0-4.0 10^3/uL Monocytes # (Auto) 0.9 0.0-1.0 10^3/uL Eosinophils # (Auto) 0.1 0.0-0.3 10^3/uL Basophils # (Auto) 0.0 0.0-0.1 10^3/uL Immature Granulocyte # (Auto) 0.1 0.0-0.1 10^3/uL Sodium Level 133 L 135-145 MMOL/L Potassium Level 4.2 3.6-5.0 MMOL/L Chloride Level 97 L 98-107 MMOL/L Carbon Dioxide Level 20 L 21-32 MMOL/L Anion Gap 16 H 5-14 MMOL/L Blood Urea Nitrogen 9 7-18 MG/DL Creatinine 0.90 0.60-1.30 MG/DL Estimat Glomerular Filtration Rate 117 BUN/Creatinine Ratio 10 Glucose Level 96 70-105 MG/DL Calcium Level 9.9 8.5-10.1 MG/DL Corrected Calcium 9.9 8.5-10.1 MG/DL Total Bilirubin 1.4 H 0.1-1.0 MG/DL Aspartate Amino Transf (AST/SGOT) 20 5-34 U/L Alanine Aminotransferase (ALT/SGPT) 48 0-55 U/L Alkaline Phosphatase 101 40-136 U/L C-Reactive Protein High Sensitivity 20.55 H 0.00-0.50 MG/DL Total Protein 8.7 H 6.4-8.2 GM/DL Albumin 4.0 3.2-4.5 GM/DL Lipase 39 8-78 U/L Urine Color ORANGE Urine Clarity CLEAR Urine pH 6.0 5-9 Urine Specific [place] 1.025 H 1.016-1.022 Urine Protein 1+ H NEGATIVE Urine Glucose (UA) NEGATIVE NEGATIVE Urine Ketones 2+ H NEGATIVE Urine Nitrite NEGATIVE NEGATIVE Urine Bilirubin 2+ H NEGATIVE Urine Urobilinogen 0.2 < = 1.0 MG/DL Urine Leukocyte Esterase NEGATIVE NEGATIVE Urine RBC (Auto) NEGATIVE NEGATIVE Urine RBC NONE /HPF Urine WBC 0-2 /HPF Urine Squamous Epithelial Cells NONE /HPF Urine Crystals NONE /LPF Urine Bacteria FEW H /HPF Urine Casts PRESENT /LPF Urine Hyaline Casts 0-2 H /LPF Urine Mucus LARGE H /LPF Urine Culture Indicated YES My Orders Orders - ETHAN BORGES Ed Iv/Invasive Line Start (07/04/22 20:32) Ns Iv 1000 Ml (Sodium Chloride 0.9%) (07/04/22 20:45) Ns Iv 1000 Ml (Sodium Chloride 0.9%) (07/04/22 20:45) Ondansetron Injection (Zofran Injectio (07/04/22 20:45) Lidocaine 2% Viscous 15 Ml (Xylocaine Vi (07/04/22 20:45) Antacid Suspension (Mylanta Suspension (07/04/22 20:45) Pantoprazole Injection (Protonix Injecti (07/04/22 20:45) Loperamide Tablet (Imodium Tablet) (07/04/22 20:45) Cbc With Automated Diff (07/04/22 20:32) Comprehensive Metabolic Panel (07/04/22 20:32) Hs C Reactive Protein (07/04/22 20:32) Lipase (07/04/22 20:32) Ua Culture If Indicated (07/04/22 20:32) Ct Abdomen/Pelvis W (07/04/22 20:32) Iohexol Injection (Omnipaque 350 Mg/Ml 1 (07/04/22 20:45) Received Contrast (Hold Metformin- Contr (07/04/22 20:45) Ns (Ivpb) (Sodium Chloride 0.9% Ivpb Bag (07/04/22 20:45) Urine Culture (07/04/22 20:40) Ondansetron Injection (Zofran Injectio (07/04/22 21:30) Fentanyl Inj (Sublimaze Injection) (07/04/22 22:00) Piperacillin Sodium/Tazobactam (Zosyn Vi (07/04/22 22:00) Blood Culture (07/04/22 21:53) Medications Given in ED Current Medications Medications Dose Ordered Sig/Chris Route Start Time Stop Time Status Last Admin Dose Admin Al Hydrox/Mg Hydrox/Simethicone 30 ml ONCE ONCE PO 07/04/22 20:45 07/04/22 20:46 DC 07/04/22 21:48 30 ML Fentanyl Citrate 50 mcg ONCE ONCE IVP 07/04/22 22:00 07/04/22 22:01 DC 07/04/22 22:18 50 MCG Iohexol 100 ml ONCE ONCE IV 07/04/22 20:45 07/04/22 20:46 DC 07/04/22 21:17 80 ML Lidocaine HCl 15 ml ONCE ONCE PO 07/04/22 20:45 07/04/22 20:46 DC 07/04/22 21:48 15 ML Loperamide HCl 4 mg ONCE ONCE PO 07/04/22 20:45 07/04/22 20:46 DC 07/04/22 21:48 4 MG Ondansetron HCl 4 mg ONCE ONCE IVP 07/04/22 20:45 07/04/22 20:46 DC 07/04/22 20:52 4 MG Ondansetron HCl 8 mg ONCE ONCE IVP 07/04/22 21:30 07/04/22 21:31 DC 07/04/22 21:22 8 MG Pantoprazole 40 mg ONCE ONCE IV 07/04/22 20:45 07/04/22 20:46 DC 07/04/22 20:52 40 MG Piperacillin Sod/ Tazobactam Sod 4.5 gm/Sodium Chloride 100 ml @ 200 mls/hr ONCE ONCE IV 07/04/22 22:00 07/04/22 22:29 DC 07/04/22 22:31 200 MLS/HR Sodium Chloride 100 ml ONCE ONCE IV 07/04/22 20:45 07/04/22 20:46 DC 07/04/22 21:17 100 ML Sodium Chloride 1,000 ml @ 0 mls/hr Q0M ONCE IV 07/04/22 20:45 07/04/22 20:46 DC 07/04/22 20:52 0 MLS/HR Vital Signs/I&O 07/04/22 20:20 Temp 37.4 Pulse 101 Resp 16 B/P (MAP) 149/92 (111) Pulse Ox 100 O2 Delivery Room Air Progress Progress Note : Time: 20:42 Progress Note Start with a liter of fluids, GI cocktail, Protonix and Zofran. We will give him some Imodium and check blood work including a lipase. Given his history of abscess formation we will get a CT of the abdomen and pelvis. Diagnostic Imaging Diagonstic Imaging: CT Plain Films/CT/US/NM/MRI: abdomen, pelvis Comments [facility] [place], [place] NAME: [facility] REC#: [id number] PT STATUS: REG ER : 1990 PHYSICIAN: ETHAN BORGES MD ADMIT DATE: 07/04/22/ER Signed Date of Exam:07/04/22 CT ABDOMEN/PELVIS W EXAMINATION: CT abdomen and pelvis with intravenous contrast. TECHNIQUE: Multiple contiguous axial images were obtained through the abdomen and pelvis after the uneventful administration of intravenous contrast. All CT scans use one or more of the following dose optimizing techniques: automated exposure control, MA and/or KvP adjustment based on patient size and exam type or iterative reconstruction. HISTORY: Abdominal pain. COMPARISON: 06/09/2022. FINDINGS: The heart is unremarkable. Opacities are seen in the right lung base. Focal fluid collection is seen in the right upper quadrant adjacent to the pancreas measuring 3.4 x 2.8 cm. Previously this collection measured 1.6 x 0.8 cm. There is generalized edema throughout the mesentery in the right lower quadrant, also increased compared to the prior exam. The liver, spleen, pancreas, adrenal glands and kidneys have a normal appearance. The gallbladder is unremarkable. Nondilated fluid-filled loops of small bowel are seen in the mid abdomen. There is also mild distention of the stomach. The bowel loops are nondilated. The appendix is absent. There is no free fluid or free air. No acute osseous abnormalities. There is no free air, loculated collection or adenopathy in the pelvis. IMPRESSION: 1. Interval increase in size in a loculated collection in the right upper quadrant adjacent to the pancreas with increasing mesenteric edema. Findings likely represent abdominal abscess. Recommend continued follow-up, as indicated. 2. Nondilated fluid-filled loops of small bowel with mildly distended fluid-filled stomach. Findings likely represent reactive ileus or gastritis/enteritis. No bowel obstruction. Dictated by: Dictated on workstation # [id number] Dict: 07/04/[id number] Trans: 07/04/222138 [facility] [id number] Interpreted by: MARLENE CAO DO Electronically signed by: MARLENE CAO DO 07/04/22 2139 Reviewed: Reviewed by Me Departure Communication (Admissions) Time/Spoke to Admitting Phy: 21:45 Discussed the case with Dr. Azevedo who agrees to admit the patient and attempt to treat with IV antibiotics first. Clear liquids. Impression Primary Impression: Intra-abdominal abscess Disposition: ADMITTED INPATIENT Condition: Stable Admissions Decision to Admit Reason: Admit from ER (General) Decision to Admit/Date: Jul 04, 2022 Time/Decision to Admit Time: 22:00 Departure-Patient Inst. Referrals: NO,LOCAL PHYSICIAN (PCP/Family) Primary Care Physician ETHAN BORGES Jul 04, 2022 20:40
[2022-07-04] MEDS ORDERED: ONDANSETRON 4 MG/2 ML (SDV) Z0FRAN IVP ONE ×2 (20:45→21:30)
[2022-07-04] MEDS ORDERED: NS IV 1000 ML 1,000 ML IV ONE (20:45)
[2022-07-04] MEDS ORDERED: PANTOPRAZOLE 40 MG (PROTONIX) VIAL IV ONE (20:45)
[2022-07-04] MEDS ORDERED: LIDOCAINE 2% VISCOUS 15 ML UDC PO ONE (20:45)
[2022-07-04] MEDS ORDERED: NS 100 ML (IVPB) BAG IV ONE (20:45)
[2022-07-04] MEDS ORDERED: LOPERAMIDE 2 MG (IMODIUM) TABLET PO ONE (20:45)
[2022-07-04] MEDS ORDERED: ANTACID SUSP 30 ML UDC (MYLANTA) PO ONE (20:45)
[2022-07-04] MEDS ORDERED: IOHEXOL 350 MG/ML 100 ML (OMNIPAQUE 350) VIAL IV ONE (20:45)
[2022-07-04] MEDS ORDERED: NS IV 1000 ML 1,000 ML IV SCH (20:45)
[2022-07-04] MEDS ORDERED: HOLD METFORMIN - RECEIVED CONTRAST 20 ML VIAL IV SCH (20:45)
[2022-07-04 20:48] LABS: CLARITY,URINE CLEAR; COLOR,URINE ORANGE; GLUCOSE, URINE (UA) NEGATIVE (NEGATIVE); KETONES,URINE 2+ (NEGATIVE); LEUKOCYTE ESTERASE ,URINE NEGATIVE (NEGATIVE); NITRITE,URINE NEGATIVE (NEGATIVE); PROTEIN,URINE 1+ (NEGATIVE)
[2022-07-04 20:48] LABS: BASOPHILS % (AUTO) 0 % (0-10); EOSINOPHILS # (AUTO) 0.1 10^3/uL (0.0-0.3); EOSINOPHILS % (AUTO) 0 % (0-10); HEMATOCRIT 42 % (40-54); HEMOGLOBIN 14.3 g/dL (13.3-17.7); LYMPHOCYTES # (AUTO) 1.4 10^3/uL (1.0-4.0); LYMPHOCYTES % (AUTO) 12 % (12-44); MEAN CORPUSCULAR HEMOGLOBIN 28 pg (25-34); MEAN CORPUSCULAR HGB CONC 34 g/dL (32-36); MEAN CORPUSCULAR VOLUME 82 fL (80-99); MEAN PLATELET VOLUME 8.3 fL (9.0-12.2); MONOCYTES # (AUTO) 0.9 10^3/uL (0.0-1.0); MONOCYTES % (AUTO) 7 % (0-12); NEUTROPHILS # (AUTO) 9.6 10^3/uL (1.8-7.8); NEUTROPHILS % (AUTO) 80 % (42-75); PLATELET COUNT 372 10^3/uL (130-400)
[2022-07-04 21:02] LABS: BACTERIA,URINE FEW /HPF; WBC,URINE 0-2 /HPF
[2022-07-04 21:03] LABS: BILIRUBIN,URINE 2+ (NEGATIVE); HYALINE CASTS, URINE 0-2 /LPF
[2022-07-04 21:12] LABS: BILIRUBIN,TOTAL 1.4 MG/DL (0.1-1.0); CALCIUM 9.9 MG/DL (8.5-10.1); CREATININE SERUM 0.9 MG/DL (0.60-1.30); POTASSIUM 4.2 MMOL/L (3.6-5.0); TOTAL PROTEIN 8.7 GM/DL (6.4-8.2)
--- NOTE | 2022-07-04 21:40 | Diagnostic Imaging Report ---
EXAMINATION: CT abdomen and pelvis with intravenous contrast. TECHNIQUE: Multiple contiguous axial images were obtained through the abdomen and pelvis after the uneventful administration of intravenous contrast. All CT scans use one or more of the following dose optimizing techniques: automated exposure control, MA and/or KvP adjustment based on patient size and exam type or iterative reconstruction. HISTORY: Abdominal pain. COMPARISON: 06/09/2022. FINDINGS: The heart is unremarkable. Opacities are seen in the right lung base. Focal fluid collection is seen in the right upper quadrant adjacent to the pancreas measuring 3.4 x 2.8 cm. Previously this collection measured 1.6 x 0.8 cm. There is generalized edema throughout the mesentery in the right lower quadrant, also increased compared to the prior exam. The liver, spleen, pancreas, adrenal glands and kidneys have a normal appearance. The gallbladder is unremarkable. Nondilated fluid-filled loops of small bowel are seen in the mid abdomen. There is also mild distention of the stomach. The bowel loops are nondilated. The appendix is absent. There is no free fluid or free air. No acute osseous abnormalities. There is no free air, loculated collection or adenopathy in the pelvis. IMPRESSION: 1. Interval increase in size in a loculated collection in the right upper quadrant adjacent to the pancreas with increasing mesenteric edema. Findings likely represent abdominal abscess. Recommend continued follow-up, as indicated. 2. Nondilated fluid-filled loops of small bowel with mildly distended fluid-filled stomach. Findings likely represent reactive ileus or gastritis/enteritis. No bowel obstruction. Dictated by: Dictated on workstation # [id number]
[2022-07-04] MEDS ORDERED: fentaNYL INJ 100 MCG/2 ML AMP IVP ONE (22:00)
[2022-07-04] MEDS ORDERED: PIPERACILLIN SODIUM/TAZOBACTAM 4.5 GM in NS (IVPB) 100 ML IV ONE (22:00)
[2022-07-04 23:00] VITALS: BP 139/77
[2022-07-04] MEDS ORDERED: LACTATED RINGERS 1,000 ML IV ONE (23:03)
[2022-07-05] MEDS ORDERED: fentaNYL INJ 100 MCG/2 ML AMP ONE (00:17)
[2022-07-05] MEDS: fentaNYL INJ 100 MCG/2 ML AMP IV PRN ×5 (00:25→23:26)
[2022-07-05] MEDS: LACTATED RINGERS 1,000 ML IV SCH ×4 (00:25→23:29)
[2022-07-05] MEDS ORDERED: ACETAMINOPHEN 325 MG TABLET PO PRN (00:30)
[2022-07-05] MEDS ORDERED: ACETAMINOPHEN 650 MG SUPP (TYLENOL) PR PRN (00:30)
[2022-07-05] MEDS ORDERED: morphine INJ 4 MG/ML 1 ML (VIAL/SYRINGE) IV PRN (00:30)
[2022-07-05] MEDS: ONDANSETRON 4 MG/2 ML (SDV) Z0FRAN IV PRN (02:44)
[2022-07-05 03:19] VITALS: BP 129/74
[2022-07-05] MEDS: PIPERACILLIN SODIUM/TAZOBACTAM 4.5 GM in NS (IVPB) 100 ML IV SCH ×3 (03:19→19:21)
[2022-07-05 05:46] LABS: BASOPHILS % (AUTO) 0 % (0-10); EOSINOPHILS % (AUTO) 0 % (0-10); HEMATOCRIT 36 % (40-54); HEMOGLOBIN 11.8 g/dL (13.3-17.7); LYMPHOCYTES # (AUTO) 0.7 10^3/uL (1.0-4.0); LYMPHOCYTES % (AUTO) 7 % (12-44); MEAN CORPUSCULAR HEMOGLOBIN 27 pg (25-34); MEAN CORPUSCULAR HGB CONC 33 g/dL (32-36); MEAN CORPUSCULAR VOLUME 84 fL (80-99); MEAN PLATELET VOLUME 8.5 fL (9.0-12.2); MONOCYTES # (AUTO) 0.7 10^3/uL (0.0-1.0); MONOCYTES % (AUTO) 6 % (0-12); NEUTROPHILS # (AUTO) 9.7 10^3/uL (1.8-7.8); NEUTROPHILS % (AUTO) 86 % (42-75); PLATELET COUNT 304 10^3/uL (130-400); WHITE BLOOD COUNT 11.2 10^3/uL (4.3-11.0)
[2022-07-05 06:02] LABS: CALCIUM 8.9 MG/DL (8.5-10.1); CREATININE SERUM 0.9 MG/DL (0.60-1.30)
[2022-07-05 06:05] LABS: EOSINOPHILS % (MANUAL) 5 %; LYMPHOCYTES % (MANUAL) 11 %; MONOCYTES % (MANUAL) 6 %; NEUTROPHILS % (MANUAL) 78 %; RBC MORPH NORMAL
[2022-07-05 07:23] VITALS: BP 122/68
[2022-07-05] MEDS: PROMETHAZINE INJ 25 MG/ML (PHENERGAN) AMP IVP PRN (08:48)
--- NOTE | 2022-07-05 09:05 | History & Physical-Surgical ---
History of Present Illness History of Present Illness Patient Consulted On(sarai/time) 07/05/22 09:04 Date Seen by Provider: Jul 05, 2022 Time Seen by Provider: 09:04 History of Present Illness Patient is a 32 year old male that presented to the ED on 07/04 with chief complaint of abdominal pain. Patient had an appendectomy on 06/03/[address] Neal. The patient's appendix had a small perforation, so a EMELY drain was placed. The patient returned to the ED a week later with complaints of abdominal pain and was found to have a focal collection of fluid suggesting early abscess formation measuring 1.[address] scan last night, this collection of fluid measured 3.4 x 2.8cm. The patient states that his current pain started over the last week, worsening on Thursday and then worsening even more on Thursday. The patient currently rates his pain as a 5/10 but states that it was an 8-9/10 on admission. Patient is tender on palpation in the RUQ, RLQ, and LLQ. His pain is worse on the right side which he describes as an ache, the LLQ pain he describes as sharp. Patient has also been having some fever and chills for the past few days but this has improved since admission. Patient has been having loose watery stools since earlier this week. Patient had some nausea yesterday with one episode of vomiting while getting his CT, no other episodes of N/V. Chief complaint abdominal pain. Patient is a 32-year-old male who had an appendectomy on 06/03/2022. Patient had to have a drain placed due to a small perforation. Patient had drain removed approximately 10 days ago. Patient states that he slowly continued to worsen in terms of abdominal pain. He states that his pain is currently a 5 out of 10 and at its worst was about 8 or 9 out of 10. Its kind of focalized to the right side of the abdomen. He just was not feeling that well either. He has had some nausea and vomiting. May be some chills. Nothing was seeming to make things better or worse. Since he got fluids and antibiotics started he states he is feeling maybe slightly better. He had a CT scan that demonstrated:1. Interval increase in size in a loculated collection in the right upper quadrant adjacent to the pancreas with increasing mesenteric edema. Findings likely represent abdominal abscess. Recommend continued follow-up, as indicated. 2. Nondilated fluid-filled loops of small bowel with mildly distended fluid-filled stomach. Findings likely represent reactive ileus or gastritis/enteritis. No bowel obstruction. Allergies and Home Medications Allergies Coded Allergies: No Known Drug Allergies (Unverified , 06/03/22) Patient Home Medication List Home Medication List Reviewed: Yes Cefdinir (Cefdinir) 300 Mg Capsule, 300 MG PO BID Prescribed by: NAMITA NEAL on 06/12/22 1309 Hydrocodone Bit/Acetaminophen (HYDROcodone/APAP 10/325 TABLET) 1 Ea Tab, 1 EA PO Q6H PRN for PAIN-MODERATE (5-7) Prescribed by: NAMITA NEAL on 06/12/22 1309 Metronidazole (Metronidazole) 500 Mg Tablet, 500 MG PO TID Prescribed by: NAMITA NEAL on 06/12/22 1309 Past Yydqkla-Yentat-Bclthm Hx Patient Social History Smoking Status: Never a Smoker Alcohol Use?: No Have you traveled recently?: No Surgeries History of Surgeries: Yes Surgeries: Appendectomy Respiratory History of Respiratory Disorde: No Cardiovascular History of Cardiac Disorders: No Neurological History of Neurological Disord: No Genitourinary History of Genitourinary Disor: No Gastrointestinal History of Gastrointestinal Di: Yes Gastrointestinal Disorders: Abdominal Hernia Musculoskeletal History of Musculoskeletal Dis: No Endocrine History of Endocrine Disorders: No HEENT History of HEENT Disorders: No Loss of Vision: Denies Hearing Impairment: Denies Cancer History of Cancer: No Psychosocial History of Psychiatric Problem: No Integumentary History of Skin or Integumenta: No Blood Transfusions History of Blood Disorders: No Reviewed Nursing Assessment Reviewed/Agree w Nursing PMH: Yes Family Medical History Significant Family History: Heart Disease Review of Systems-General Constitutional: chills, fever EENTM: No hearing loss, No blurred vision Respiratory: No cough, No dyspnea on exertion Cardiovascular: No chest pain, No edema Gastrointestinal: RUQ, RLQ, LLQ, abdominal pain Musculoskeletal: No gout, No joint pain Skin: No change in color, No change in hair/nails Psychiatric/Neurological: Denies Anxiety, Denies Depressed, Denies Emotional Problems All Other Systems Reviewed Negative Unless Noted: Yes (Negative excepted noted.) Physical Exam-General Problems Physical Exam Vital Signs Vital Signs - First Documented 07/04/22 20:20 Temp 37.4 Pulse 101 Resp 16 B/P (MAP) 149/92 (111) Pulse Ox 100 O2 Delivery Room Air Capillary Refill : Less Than 3 Seconds General Appearance: WD/WN, no apparent distress HEENT: PERRL/EOMI, normal ENT inspection Neck: non-tender, supple Respiratory: chest non-tender, no respiratory distress, no accessory muscle use Cardiovascular: regular rate, rhythm, no edema Gastrointestinal: soft, tenderness (RLQ, RUQ, LLQ minimal incisions c/d/i no signs of infection) Rectal: deferred Back: normal inspection, no CVA tenderness Extremities: normal range of motion, non-tender Neurologic/Psychiatric: alert, normal mood/affect, oriented x 3 Skin: normal color, warm/dry Lymphatic: no adenopathy Data Review Labs Laboratory Tests 07/04/22 20:30: White Blood Count 12.0H, Red Blood Count 5.18, Hemoglobin 14.3, Hematocrit 42, Mean Corpuscular Volume 82, Mean Corpuscular Hemoglobin 28, Mean Corpuscular Hemoglobin Concent 34, Red Cell Distribution Width 12.4, Platelet Count 372, Mean Platelet Volume 8.3L, Immature Granulocyte % (Auto) 1, Neutrophils (%) (Auto) 80H, Lymphocytes (%) (Auto) 12, Monocytes (%) (Auto) 7, Eosinophils (%) (Auto) 0, Basophils (%) (Auto) 0, Neutrophils # (Auto) 9.6H, Lymphocytes # (Auto) 1.4, Monocytes # (Auto) 0.9, Eosinophils # (Auto) 0.1, Basophils # (Auto) 0.0, Immature Granulocyte # (Auto) 0.1, Sodium Level 133L, Potassium Level 4.2, Chloride Level 97L, Carbon Dioxide Level 20L, Anion Gap 16H, Blood Urea Nitrogen 9, Creatinine 0.90, Estimat Glomerular Filtration Rate 117, BUN/Creatinine Ratio 10, Glucose Level 96, Calcium Level 9.9, Corrected Calcium 9.9, Total Bilirubin 1.4H, Aspartate Amino Transf (AST/SGOT) 20, Alanine Aminotransferase (ALT/SGPT) 48, Alkaline Phosphatase 101, C-Reactive Protein High Sensitivity 20.55H, Total Protein 8.7H, Albumin 4.0, Lipase 39 07/04/22 20:40: Urine Color ORANGE, Urine Clarity CLEAR, Urine pH 6.0, Urine Specific [place] 1.025H, Urine Protein 1+H, Urine Glucose (UA) NEGATIVE, Urine Ketones 2+H, Urine Nitrite NEGATIVE, Urine Bilirubin 2+H, Urine Urobilinogen 0.2, Urine Leukocyte Esterase NEGATIVE, Urine RBC (Auto) NEGATIVE, Urine RBC NONE, Urine WBC 0-2, Urine Squamous Epithelial Cells NONE, Urine Crystals NONE, Urine Bacteria FEWH, Urine Casts PRESENT, Urine Hyaline Casts 0-2H, Urine Mucus LARGEH, Urine Culture Indicated YES 07/05/22 05:06: White Blood Count 11.2H, Red Blood Count 4.34, Hemoglobin 11.8L, Hematocrit 36L, Mean Corpuscular Volume 84, Mean Corpuscular Hemoglobin 27, Mean Corpuscular Hemoglobin Concent 33, Red Cell Distribution Width 12.4, Platelet Count 304, Mean Platelet Volume 8.5L, Immature Granulocyte % (Auto) 1, Neutrophils (%) (Auto) 86H, Lymphocytes (%) (Auto) 7L, Monocytes (%) (Auto) 6, Eosinophils (%) (Auto) 0, Basophils (%) (Auto) 0, Neutrophils # (Auto) 9.7H, Lymphocytes # (Auto) 0.7L, Monocytes # (Auto) 0.7, Eosinophils # (Auto) 0.0, Basophils # (Auto) 0.0, Immature Granulocyte # (Auto) 0.1, Sodium Level 136, Potassium Level 4.0, Chloride Level 103, Carbon Dioxide Level 22, Anion Gap 11, Blood Urea Nitrogen 8, Creatinine 0.90, Estimat Glomerular Filtration Rate 117, BUN/Creatinine Ratio 9, Glucose Level 119H, Calcium Level 8.9, Neutrophils % (Manual) 78, Lymphocytes % (Manual) 11, Monocytes % (Manual) 6, Eosinophils % (Manual) 5, Blood Morphology Comment NORMAL Assessment/Plan Assessment/Plan Admission Diagonsis intrabdominal abscess s/p laparoscopic appendectomy with perforation nausea vomiting leukocytosis Admission Status: Inpatient Order (span 2 midnights) Reason for Inpatient Admission: Patient needs at least 48 hours of IV fluids and antibiotics may need reimaging or surgical intervention. Assessment/Plan Intra-abdominal abscess Abdominal pain intrabdominal abscess s/p laparoscopic appendectomy with perforation nausea vomiting leukocytosis Patient on clear liquids Pain control On Zosyn , May need repeat ct scan to re-evaluate. If worsens may need surgical intervention. Supervisory-Addendum Brief Verification & Attestation Participated in pt care: history, MDM, physical Personally performed: exam, history, MDM, supervision of care Care discussed with: Medical Student Procedures: n/a Results interpretation: Verified all documentation Verification and Attestation of Medical Student E/M Service A medical student performed and documented this service in my presence. I reviewed and verified all information documented by the medical student and made modifications to such information, when appropriate. I personally performed the physical exam and medical decision making. Norma Connelly, Jul 05, 2022,16:34 TALHA MAGDALENO Jul 05, 2022 09:05 NORMA CONNELLY DO Jul 05, 2022 16:26
[2022-07-05 11:22] VITALS: BP 120/65
[2022-07-05 16:12] VITALS: BP 117/58
[2022-07-05 19:40] VITALS: BP 131/70
[2022-07-05 23:30] VITALS: BP 114/59
[2022-07-06] MEDS: LACTATED RINGERS 1,000 ML IV SCH ×4 (05:32→23:44)
[2022-07-06] MEDS: PIPERACILLIN SODIUM/TAZOBACTAM 4.5 GM in NS (IVPB) 100 ML IV SCH ×3 (05:32→19:36)
[2022-07-06] MEDS: fentaNYL INJ 100 MCG/2 ML AMP IV PRN ×3 (05:33→18:13)
[2022-07-06 05:39] LABS: HEMATOCRIT 35 % (40-54); HEMOGLOBIN 11.3 g/dL (13.3-17.7); MEAN CORPUSCULAR HEMOGLOBIN 27 pg (25-34); MEAN CORPUSCULAR HGB CONC 33 g/dL (32-36); MEAN CORPUSCULAR VOLUME 84 fL (80-99); MEAN PLATELET VOLUME 8.3 fL (9.0-12.2); PLATELET COUNT 286 10^3/uL (130-400); WHITE BLOOD COUNT 10.2 10^3/uL (4.3-11.0)
[2022-07-06 07:35] VITALS: BP 120/66
--- NOTE | 2022-07-06 08:12 | Progress Note - Surgery ---
TALHA MAGDALENO 07/06/22 0812: Subjective Date Seen by a Provider: Jul 06, 2022 Time Seen by a Provider: 08:07 Subjective/Events-last exam Patient is awake and alert in his bed this morning, no family at bedside. Patient reports that his pain feels slightly improved from yesterday, from a 5/10 to a 4/10. Patient reports that he felt slightly feverish last night with a small amount of diaphoresis. He has some tenderness on palpation in the RUQ, and RLQ, which he states feels less tender than yesterday. Patient has no new complaints. Review of Systems General: No Chills; Night Sweats HEENT: No Head Aches, No Visual Changes, No Eye Pain Pulmonary: No Dyspnea, No Cough Cardiovascular: No: Chest Pain, Palpitations, Orthopnea Gastrointestinal: Abdominal Pain (RUQ, RLQ); No: Nausea, Vomiting Genitourinary: No Dysuria, No Frequency Musculoskeletal: No: neck pain, shoulder pain Neurological: No: Weakness, Numbness, Incoordination Objective Exam Vital Signs Date Time Temp Pulse Resp B/P (MAP) Pulse Ox O2 Delivery O2 Flow Rate FiO2 07/06/22 07:54 Room Air 07/06/22 07:35 37.0 81 18 120/66 (84) 95 Room Air 07/05/22 23:30 37.1 85 20 114/59 (77) 95 Room Air 07/05/22 19:40 37.9 79 21 131/70 (90) 98 Room Air 07/05/22 19:26 Room Air 07/05/22 16:12 36.8 93 20 117/58 (77) 94 Room Air 07/05/22 11:22 36.4 80 18 120/65 (83) 96 Room Air I & O 07/06/22 07:00 Intake Total 7640 ml Balance 7640 ml Capillary Refill : Less Than 3 Seconds General Appearance: No Apparent Distress, WD/WN HEENT: PERRL/EOMI, Normal ENT Inspection Neck: Non Tender, Supple Respiratory: Chest Non Tender, No Respiratory Distress Cardiovascular: Regular Rate, Rhythm, No Edema Gastrointestinal: soft, tenderness (RLQ, RUQ minimal incisions c/d/i no signs of infection; patient yesterday had slight LLQ tenderness as well) Extremity: Normal Inspection, Non Tender Neurologic/Psychiatric: Alert, Oriented x3 Skin: Normal Color, Warm/Dry Lymphatic: No Adenopathy Results Lab Laboratory Tests 07/06/22 05:19: White Blood Count 10.2, Red Blood Count 4.12L, Hemoglobin 11.3L, Hematocrit 35L, Mean Corpuscular Volume 84, Mean Corpuscular Hemoglobin 27, Mean Corpuscular Hemoglobin Concent 33, Red Cell Distribution Width 12.7, Platelet Count 286, Mean Platelet Volume 8.3L Microbiology 07/04/22 Blood Culture - Preliminary, Resulted No growth Assessment/Plan Assessment/Plan Assessment/Plan intrabdominal abscess s/p laparoscopic appendectomy with perforation nausea vomiting leukocytosis Patient on clear liquids Continue pain control On Zosyn Continue antiemetics May need repeat ct scan to re-evaluate. If worsens may need surgical intervention. NORMA AZEVEDO DO 07/06/22 1226: Subjective Subjective/Events-last exam Patient states he is feeling little bit better today. Just a little bit of pain in the right side of the abdomen. Overall feeling better than yesterday. He has no nausea or vomiting fever sweats chills shortness of breath or chest pain at this time. White blood cell count slowly decreasing. Objective Exam General Appearance: No Apparent Distress, WD/WN HEENT: PERRL/EOMI, Normal ENT Inspection Neck: Non Tender, Supple Respiratory: Chest Non Tender, No Respiratory Distress Cardiovascular: Regular Rate, Rhythm, No JVD Gastrointestinal: soft, tenderness (Tenderness right side of the abdomen decreased from yesterday) Extremity: Normal Inspection, Non Tender Neurologic/Psychiatric: Alert, Oriented x3 Skin: Normal Color, Warm/Dry Lymphatic: No Adenopathy Assessment/Plan Assessment/Plan Assessment/Plan intrabdominal abscess s/p laparoscopic appendectomy with perforation nausea vomiting leukocytosis Patient on clear liquids Continue pain control On Zosyn Continue antiemetics May need repeat ct scan to re-evaluate. If worsens may need surgical intervention He's feeling better today so will continue with conservative measures. Supervisory-Addendum Brief Verification & Attestation Participated in pt care: history, MDM, physical Personally performed: exam, history, MDM, supervision of care Care discussed with: Medical Student Procedures: n/a Results interpretation: Verified all documentation Verification and Attestation of Medical Student E/M Service A medical student performed and documented this service in my presence. I reviewed and verified all information documented by the medical student and made modifications to such information, when appropriate. I personally performed the physical exam and medical decision making. Norma Azevedo, Jul 06, 2022,12:26 TALHA MAGDALENO Jul 06, 2022 08:12 NORMA AZEVEDO DO Jul 06, 2022 12:26
[2022-07-06 15:30] VITALS: BP 127/66
[2022-07-06] MEDS ORDERED: PIPERACILLIN/TAZO 4.5 GM VIAL (ZOSYN) IV ONE (19:02)
[2022-07-06] MEDS: ONDANSETRON 4 MG/2 ML (SDV) Z0FRAN IV PRN (19:40)
[2022-07-06 23:44] VITALS: BP 115/69
[2022-07-07] MEDS: LACTATED RINGERS 1,000 ML IV SCH ×2 (04:04→11:22)
[2022-07-07] MEDS: PIPERACILLIN SODIUM/TAZOBACTAM 4.5 GM in NS (IVPB) 100 ML IV SCH ×3 (04:04→20:27)
[2022-07-07] MEDS: fentaNYL INJ 100 MCG/2 ML AMP IV PRN ×3 (04:08→20:27)
[2022-07-07 05:42] LABS: HEMATOCRIT 35 % (40-54); HEMOGLOBIN 11.4 g/dL (13.3-17.7); MEAN CORPUSCULAR HEMOGLOBIN 28 pg (25-34); MEAN CORPUSCULAR HGB CONC 33 g/dL (32-36); MEAN CORPUSCULAR VOLUME 84 fL (80-99); MEAN PLATELET VOLUME 8.5 fL (9.0-12.2); PLATELET COUNT 294 10^3/uL (130-400); WHITE BLOOD COUNT 10.2 10^3/uL (4.3-11.0)
--- NOTE | 2022-07-07 07:03 | Progress Note - Surgery ---
YARI ANN 07/07/22 0703: Subjective Date Seen by a Provider: Jul 07, 2022 Time Seen by a Provider: 06:50 Subjective/Events-last exam Patient is doing well today. He says he is feeling better and his pain is currently at a 2/10, which is better than it has been. He is having BMs and voiding. He claims he has been ambulating several times a day. He is tolerating a clear liquid diet well. Review of Systems Pulmonary: No Dyspnea, No Cough Cardiovascular: No: Chest Pain, Palpitations, Lt Headedness Gastrointestinal: Abdominal Pain, Diarrhea; No: Nausea, Vomiting, Melena, Hematochezia Objective Exam Vital Signs Date Time Temp Pulse Resp B/P (MAP) Pulse Ox O2 Delivery O2 Flow Rate FiO2 07/06/22 23:44 36.4 71 16 115/69 (84) 95 Room Air 07/06/22 20:00 94 Room Air 07/06/22 19:40 Room Air 07/06/22 15:30 37.1 80 21 127/66 (86) 96 Room Air 07/06/22 07:54 Room Air 07/06/22 07:35 37.0 81 18 120/66 (84) 95 Room Air I & O 07/07/22 07:00 Intake Total 5160 ml Balance 5160 ml Capillary Refill : Less Than 3 Seconds General Appearance: No Apparent Distress, WD/WN HEENT: PERRL/EOMI, Moist Mucous Membranes Neck: Non Tender, Supple Respiratory: Lungs Clear, Normal Breath Sounds, No Accessory Muscle Use, No Respiratory Distress Cardiovascular: Regular Rate, Rhythm, No Murmur Peripheral Pulses: 2+ Dorsalis Pedis (R), 2+ Left Dors-Pedis (L), 2+ Radial Pulses (R), 2+ Radial Pulses (L) Gastrointestinal: normal bowel sounds, soft, tenderness (most tender in RUQ, also in RLQ), other (right side of abdomen feels rigid to palpation) Extremity: Non Tender, No Calf Tenderness, No Pedal Edema Neurologic/Psychiatric: Alert, Oriented x3 Skin: Normal Color, Warm/Dry Lymphatic: No Adenopathy (cervical) Results Lab Laboratory Tests 07/07/22 05:33: White Blood Count 10.2, Red Blood Count 4.12L, Hemoglobin 11.4L, Hematocrit 35L, Mean Corpuscular Volume 84, Mean Corpuscular Hemoglobin 28, Mean Corpuscular Hemoglobin Concent 33, Red Cell Distribution Width 12.6, Platelet Count 294, Mean Platelet Volume 8.5L Microbiology 07/04/22 Blood Culture - Preliminary, Resulted No growth 07/04/22 Urine Culture - Final, Complete NO GROWTH Assessment/Plan Assessment/Plan Assessment/Plan Intrabdominal abscess s/p laparoscopic appendectomy with perforation on 06/03/2022 N/V- none since he was in CT on 07/04/2022 Leukocytosis- Improved Continue patient on zosyn. Pain control with fentanyl PRN. Patient has not had N/V since 07/04 but continue phenergan PRN. WBC improved from 12 on admission to 10.2 today, will monitor with AM labs. Patient is feeling better, continue conservative management and repeat CT scan to re-evaluate abscess size. If condition worsens he may need surgical intervention. KENDELL FOSTER DO 07/07/22 1322: Subjective Time Seen by a Provider: 13:01 Subjective/Events-last exam Pt seen and examined, states he is feeling better. Has not had any further episodes of vomiting. States his pain is RUQ. Review of Systems General: Fatigue Pulmonary: No Dyspnea, No Cough Cardiovascular: No: Chest Pain, Palpitations Gastrointestinal: Abdominal Pain, Diarrhea; No: Nausea, Vomiting, Melena, Hematochezia Objective Exam General Appearance: No Apparent Distress, WD/WN HEENT: PERRL/EOMI, Moist Mucous Membranes Respiratory: Lungs Clear, Normal Breath Sounds, No Accessory Muscle Use, No Respiratory Distress Cardiovascular: Regular Rate, Rhythm, No Murmur Gastrointestinal: normal bowel sounds, soft, tenderness (most tender in RUQ, also in RLQ) Extremity: Non Tender, No Calf Tenderness Neurologic/Psychiatric: Alert, Oriented x3 Skin: Normal Color, Warm/Dry Assessment/Plan Assessment/Plan Assessment/Plan Intrabdominal abscess s/p laparoscopic appendectomy with perforation on 06/03/2022 N/V- none since he was in CT on 07/04/2022 Leukocytosis- Improved Continue patient on zosyn. Pain control with fentanyl PRN. Patient has not had N/V since 07/04 but continue phenergan PRN. WBC improved from 12 on admission to 10.2 today, will monitor with AM labs. I reviewed the CT myself and discussed it with Dr. Guerrero; he doesn't think there is enough fluid to drain. I discussed three options with the patient; 1) continue conservative management and IV ABX, 2) CT aspiration of fluid 3)Diagnostic Laparoscopy with abdominal washout. The fluid collection, possibly abscess, is not near previous fluid collection. He wants to wait and see if the ABX work. Supervisory-Addendum Brief Verification & Attestation Participated in pt care: history, MDM, physical Personally performed: exam, history, MDM, supervision of care Care discussed with: Medical Student Procedures: n/a Verification and Attestation of Medical Student E/M Service A medical student performed and documented this service. I then reviewed and verified all information documented by the medical student and made modifications to such information, when appropriate. I personally performed a physical exam, medical decision making and then discussed any differences between the notes and made revisions as necessary to create one note. Kendell Foster , 07/07/22 , 13:23 YARI ANN Jul 07, 2022 07:03 KENDELL FOSTER DO Jul 07, 2022 13:22
[2022-07-07 07:49] VITALS: BP 120/71
[2022-07-07 15:18] VITALS: BP 113/73
[2022-07-08 00:03] VITALS: BP 117/67
[2022-07-08] MEDS: fentaNYL INJ 100 MCG/2 ML AMP IV PRN (00:55)
[2022-07-08] MEDS: LACTATED RINGERS 1,000 ML IV SCH ×5 (00:56→19:46)
[2022-07-08] MEDS: PIPERACILLIN SODIUM/TAZOBACTAM 4.5 GM in NS (IVPB) 100 ML IV SCH ×3 (03:34→19:44)
[2022-07-08 05:49] LABS: HEMATOCRIT 35 % (40-54); HEMOGLOBIN 11.6 g/dL (13.3-17.7); MEAN CORPUSCULAR HEMOGLOBIN 28 pg (25-34); MEAN CORPUSCULAR HGB CONC 33 g/dL (32-36); MEAN CORPUSCULAR VOLUME 84 fL (80-99); MEAN PLATELET VOLUME 8.4 fL (9.0-12.2); PLATELET COUNT 341 10^3/uL (130-400); WHITE BLOOD COUNT 11.5 10^3/uL (4.3-11.0)
--- NOTE | 2022-07-08 07:48 | Progress Note - Surgery ---
YARI ANN 07/08/22 0748: Subjective Date Seen by a Provider: Jul 08, 2022 Time Seen by a Provider: 07:00 Subjective/Events-last exam Patient claims he is feeling better today. Pain is the same as it has been, rated at a 2/10 when lying still, increases to 4/10 when he moves. The pain is localized to his RUQ and feels like a sharp stabbing pain. He has not had a BM since yesterday morning, he is voiding normally. He is ambulating to use the restroom. He is tolerating a clear diet well, said he feels hungry and would be willing to advance his diet. Review of Systems Pulmonary: No Dyspnea, No Cough Cardiovascular: No: Chest Pain, Palpitations, Lt Headedness Gastrointestinal: Nausea (transient episode last night, not present this AM), Abdominal Pain; No: Vomiting Genitourinary: No Dysuria, No Frequency, No Hematuria Objective Exam Vital Signs Date Time Temp Pulse Resp B/P (MAP) Pulse Ox O2 Delivery O2 Flow Rate FiO2 07/08/22 00:03 37.4 84 20 117/67 (84) 94 Room Air 07/07/22 20:00 Room Air 07/07/22 15:18 37.1 74 20 113/73 (86) 95 Room Air 07/07/22 08:00 Room Air 07/07/22 07:49 37.3 80 18 120/71 (87) 95 Room Air I & O 07/08/22 07:00 Intake Total 5090 ml Balance 5090 ml Capillary Refill : Less Than 3 Seconds General Appearance: No Apparent Distress, WD/WN HEENT: PERRL/EOMI, Moist Mucous Membranes Neck: Non Tender, Supple Respiratory: Lungs Clear, Normal Breath Sounds, No Accessory Muscle Use, No Respiratory Distress Cardiovascular: Regular Rate, Rhythm, No Murmur Peripheral Pulses: 2+ Dorsalis Pedis (R), 2+ Left Dors-Pedis (L), 2+ Radial Pulses (R), 2+ Radial Pulses (L) Gastrointestinal: guarding (RUQ), tenderness (most tender in RUQ, also in RLQ and epigastric area) Extremity: Non Tender, No Calf Tenderness Neurologic/Psychiatric: Alert, Oriented x3 Skin: Normal Color, Warm/Dry Lymphatic: No Adenopathy (cervical) Results Lab Laboratory Tests 07/08/22 05:25: White Blood Count 11.5H, Red Blood Count 4.14L, Hemoglobin 11.6L, Hematocrit 35L , Mean Corpuscular Volume 84, Mean Corpuscular Hemoglobin 28, Mean Corpuscular Hemoglobin Concent 33, Red Cell Distribution Width 12.6, Platelet Count 341, Mean Platelet Volume 8.4L Microbiology 07/04/22 Blood Culture - Preliminary, Resulted No growth 07/04/22 Urine Culture - Final, Complete NO GROWTH Assessment/Plan Assessment/Plan Assessment/Plan Intrabdominal abscess s/p laparoscopic appendectomy with perforation on 06/03/2022 N/V- no vomiting since he was in CT on 07/04/2022 Leukocytosis Anemia Continue patient on zosyn. Pain is currently well controlled, switch to oral pain meds. Patient has not had vomiting since 07/04, had a short episode of nausea last night, continue zofran and phenergan PRN. WBC count is 11.5 today, increased from 10.2 yesterday, will monitor with AM labs. Patient Hgb is 11.6, decreased from 14.3 on admission but has received a lot of IV fluids, will monitor with AM lab. Will continue with conservative treatment. Advance patient to soft diet. KENDELL FOSTER DO 07/08/22 1143: Subjective Time Seen by a Provider: 16:12 Subjective/Events-last exam Pt seen and examined, he looks sick; but about the same as yesterday. He still has pain in RUQ, "but only when I move certain ways". He wants to eat more. Review of Systems Pulmonary: No Dyspnea, No Cough Cardiovascular: No: Chest Pain, Palpitations Gastrointestinal: Nausea (transient episode last night, not present this AM), Vomiting, Abdominal Pain Genitourinary: No Dysuria, No Frequency, No Hematuria Objective Exam General Appearance: Chronically ill, Mild Distress HEENT: PERRL/EOMI, Moist Mucous Membranes Respiratory: Lungs Clear, Normal Breath Sounds, No Accessory Muscle Use, No Respiratory Distress Cardiovascular: Regular Rate, Rhythm Gastrointestinal: guarding (RUQ), tenderness (most tender in RUQ, also in RLQ a nd epigastric area) Skin: Diaphoresis Assessment/Plan Assessment/Plan Assessment/Plan Intrabdominal abscess s/p laparoscopic appendectomy with perforation on 06/03/2022 N/V- no vomiting since he was in CT on 07/04/2022 Leukocytosis Anemia Continue patient on zosyn. Pain is currently well controlled, switch to oral pain meds. Patient has not had vomiting since 07/04, had a short episode of nausea last night, continue zofran and phenergan PRN. WBC count is 11.5 today, increased from 10.2 yesterday, will monitor with AM labs. Patient Hgb is 11.6, decreased from 14.3 on admission but has received a lot of IV fluids, will monitor with AM lab. Will continue with conservative treatment. Advance patient to soft diet. I talked to pt regarding the fact that he doesn't look like he is getting better and we may need to go to the OR to wash everything out. Will monitor a little bit longer; he was ok with this plan. Supervisory-Addendum Brief Verification & Attestation Participated in pt care: history, MDM, physical Personally performed: exam, history, MDM, supervision of care Care discussed with: Medical Student Procedures: n/a Verification and Attestation of Medical Student E/M Service A medical student performed and documented this service. I then reviewed and verified all information documented by the medical student and made modifications to such information, when appropriate. I personally performed a physical exam, medical decision making and then discussed any differences between the notes and made revisions as necessary to create one note. Kendell Foster , 07/08/22 , 11:43 YARI ANN Jul 08, 2022 07:48 KENDELL FOSTER DO Jul 08, 2022 11:43
[2022-07-08 08:00] VITALS: BP 131/72
[2022-07-08] MEDS: ONDANSETRON 4 MG/2 ML (SDV) Z0FRAN IV PRN ×2 (14:10→23:13)
[2022-07-08 15:17] VITALS: BP 147/81
[2022-07-08] MEDS: PROMETHAZINE INJ 25 MG/ML (PHENERGAN) AMP IVP PRN (18:29)
[2022-07-09] VITALS: BP 130/76
[2022-07-09] MEDS: LACTATED RINGERS 1,000 ML IV SCH ×3 (03:38→18:05)
[2022-07-09] MEDS: PIPERACILLIN SODIUM/TAZOBACTAM 4.5 GM in NS (IVPB) 100 ML IV SCH ×3 (03:38→20:08)
[2022-07-09 08:20] VITALS: BP 126/66
--- NOTE | 2022-07-09 10:32 | Progress Note - Surgery ---
YARI ANN 07/09/22 1032: Subjective Date Seen by a Provider: Jul 09, 2022 Time Seen by a Provider: 10:15 Subjective/Events-last exam Patient looks better today. He is in less pain than he has been. He has been having nausea. Claimed he has been ambulating, tolerating a soft diet. Review of Systems Pulmonary: No Dyspnea, No Cough Cardiovascular: No: Chest Pain, Lt Headedness Gastrointestinal: Nausea; No: Abdominal Pain Objective Exam Vital Signs Date Time Temp Pulse Resp B/P (MAP) Pulse Ox O2 Delivery O2 Flow Rate FiO2 07/09/22 08:20 36.3 66 18 126/66 (86) 96 Room Air 07/09/22 08:00 Room Air 07/09/22 00:00 36.1 71 20 130/76 (94) 97 Room Air 07/08/22 19:48 Room Air 07/08/22 15:42 Room Air 07/08/22 15:17 36.0 75 18 147/81 (103) 96 Room Air I & O 07/09/22 07:00 Intake Total 2170 ml Balance 2170 ml Capillary Refill : Less Than 3 Seconds General Appearance: WD/WN, Mild Distress HEENT: PERRL/EOMI, Moist Mucous Membranes Neck: Non Tender, Supple Respiratory: Lungs Clear, Normal Breath Sounds, No Accessory Muscle Use, No Respiratory Distress Cardiovascular: Regular Rate, Rhythm, No Murmur Peripheral Pulses: 2+ Dorsalis Pedis (R), 2+ Left Dors-Pedis (L), 2+ Radial Pulses (R), 2+ Radial Pulses (L) Gastrointestinal: soft, tenderness (RUQ) Extremity: Non Tender, No Calf Tenderness Neurologic/Psychiatric: Alert, Oriented x3 Skin: Normal Color, Warm/Dry Lymphatic: No Adenopathy (cervical) Results Lab Microbiology 07/04/22 Blood Culture - Preliminary, Resulted No growth 07/04/22 Urine Culture - Final, Complete NO GROWTH Assessment/Plan Assessment/Plan Assessment/Plan Intrabdominal abscess s/p laparoscopic appendectomy with perforation on 06/03/2022 N/V- no vomiting since he was in CT on 07/04/2022 Leukocytosis- ordering CBC Anemia- ordering CBC Continue patient on zosyn. Pain is currently well controlled, switch to oral pain meds. Continue zofran and phenergan PRN for nausea. Ordering CBC to monitor WBC and Hgb. Will continue with conservative treatment. Discussed the possibility of repeating a CT if he does not start to feel better. Advance to normal diet. KENDELL FOSTER DO 07/09/22 1117: Subjective Time Seen by a Provider: 09:59 Subjective/Events-last exam Pt seen and examined, looks healthier today with no diaphoresis. States he is keeping food down better. Review of Systems Pulmonary: No Dyspnea, No Cough Cardiovascular: No: Chest Pain, Lt Headedness Gastrointestinal: Nausea, Abdominal Pain (mild still in RUQ) Objective Exam General Appearance: WD/WN, Mild Distress HEENT: PERRL/EOMI, Moist Mucous Membranes Respiratory: Lungs Clear, Normal Breath Sounds, No Accessory Muscle Use, No Respiratory Distress Cardiovascular: Regular Rate, Rhythm, No Murmur Gastrointestinal: soft, tenderness (RUQ) Neurologic/Psychiatric: Alert, Oriented x3 Skin: Normal Color, Warm/Dry Assessment/Plan Assessment/Plan Assessment/Plan Intrabdominal abscess s/p laparoscopic appendectomy with perforation on 06/03/2022 N/V- no vomiting since he was in CT on 07/04/2022 Leukocytosis- ordering CBC Anemia- ordering CBC Continue patient on zosyn. Pain is currently well controlled, switch to oral pain meds. Continue zofran and phenergan PRN for nausea. Ordering CBC to monitor WBC and Hgb. Will continue with conservative treatment. Discussed the possibility of repeating a CT if he does not start to feel better. May advance to normal diet depending on how he tolerates soft today. Supervisory-Addendum Brief Verification & Attestation Participated in pt care: history, MDM, physical Personally performed: exam, history, MDM, supervision of care Care discussed with: Medical Student Procedures: n/a Verification and Attestation of Medical Student E/M Service A medical student performed and documented this service. I then reviewed and verified all information documented by the medical student and made modifications to such information, when appropriate. I personally performed a physical exam, medical decision making and then discussed any differences between the notes and made revisions as necessary to create one note. Kendell Foster , 07/09/22 , 11:17 YARI ANN Jul 09, 2022 10:32 KENDELL FOSTER DO Jul 09, 2022 11:17
[2022-07-09 11:40] LABS: BASOPHILS % (AUTO) 0 % (0-10); EOSINOPHILS # (AUTO) 0.2 10^3/uL (0.0-0.3); EOSINOPHILS % (AUTO) 2 % (0-10); HEMATOCRIT 41 % (40-54); HEMOGLOBIN 12.9 g/dL (13.3-17.7); LYMPHOCYTES % (AUTO) 11 % (12-44); MEAN CORPUSCULAR HEMOGLOBIN 27 pg (25-34); MEAN CORPUSCULAR HGB CONC 32 g/dL (32-36); MEAN CORPUSCULAR VOLUME 85 fL (80-99); MONOCYTES # (AUTO) 0.4 10^3/uL (0.0-1.0); MONOCYTES % (AUTO) 5 % (0-12); NEUTROPHILS # (AUTO) 7.5 10^3/uL (1.8-7.8); NEUTROPHILS % (AUTO) 81 % (42-75); PLATELET COUNT 435 10^3/uL (130-400); WHITE BLOOD COUNT 9.3 10^3/uL (4.3-11.0)
[2022-07-09] MEDS: PROMETHAZINE INJ 25 MG/ML (PHENERGAN) AMP IVP PRN ×2 (12:24→20:08)
[2022-07-09 15:52] VITALS: BP 129/73
[2022-07-09] MEDS: ONDANSETRON 4 MG/2 ML (SDV) Z0FRAN IV PRN (18:05)
[2022-07-09 23:58] VITALS: BP 130/75
[2022-07-10] MEDS: LACTATED RINGERS 1,000 ML IV SCH ×4 (00:41→19:36)
[2022-07-10] MEDS: ONDANSETRON 4 MG/2 ML (SDV) Z0FRAN IV PRN ×2 (00:43→15:46)
[2022-07-10] MEDS: PIPERACILLIN SODIUM/TAZOBACTAM 4.5 GM in NS (IVPB) 100 ML IV SCH (03:54)
--- NOTE | 2022-07-10 07:15 | Progress Note - Surgery ---
YARI ANN 07/10/22 0715: Subjective Date Seen by a Provider: Jul 10, 2022 Time Seen by a Provider: 07:15 Subjective/Events-last exam Patient says he is feeling about the same today. His abdominal pain has improved, says he does not have any pain when laying down, only certain twisting movements cause pain. He continues to have nausea after he eats or drinks anything. Since he ate lunch yesterday he has had 2 episodes of emesis that both looked "dark green". Review of Systems Pulmonary: No Dyspnea, No Cough Cardiovascular: No: Chest Pain, Palpitations, Lt Headedness Gastrointestinal: Nausea, Vomiting, Diarrhea; No: Abdominal Pain, Melena, Hematochezia Objective Exam Vital Signs Date Time Temp Pulse Resp B/P (MAP) Pulse Ox O2 Delivery O2 Flow Rate FiO2 07/09/22 23:58 36.6 66 18 130/75 (93) 96 Room Air 07/09/22 20:00 Room Air 07/09/22 15:52 37.2 76 18 129/73 (91) 95 Room Air 07/09/22 08:20 36.3 66 18 126/66 (86) 96 Room Air 07/09/22 08:00 Room Air I & O 07/10/22 07:00 Intake Total 1330 ml Output Total 1250 ml Balance 80 ml Capillary Refill : Less Than 3 Seconds General Appearance: No Apparent Distress, WD/WN HEENT: PERRL/EOMI, Moist Mucous Membranes Neck: Non Tender, Supple Respiratory: Lungs Clear, Normal Breath Sounds, No Accessory Muscle Use, No Respiratory Distress Cardiovascular: Regular Rate, Rhythm, No Murmur Peripheral Pulses: 2+ Dorsalis Pedis (R), 2+ Left Dors-Pedis (L), 2+ Radial Pulses (R), 2+ Radial Pulses (L) Gastrointestinal: normal bowel sounds, tenderness (RUQ, but he says minimal tenderness and feels more uncomfortable) Extremity: Non Tender, No Calf Tenderness Neurologic/Psychiatric: Alert, Oriented x3 Skin: Normal Color, Warm/Dry Lymphatic: No Adenopathy (cervical) Results Lab Laboratory Tests 07/09/22 11:30: White Blood Count 9.3, Red Blood Count 4.79, Hemoglobin 12.9L, Hematocrit 41, Mean Corpuscular Volume 85, Mean Corpuscular Hemoglobin 27, Mean Corpuscular Hemoglobin Concent 32, Red Cell Distribution Width 12.5, Platelet Count 435H, Mean Platelet Volume 8.0L, Immature Granulocyte % (Auto) 1, Neutrophils (%) (Auto) 81H, Lymphocytes (%) (Auto) 11L, Monocytes (%) (Auto) 5, Eosinophils (%) (Auto) 2, Basophils (%) (Auto) 0, Neutrophils # (Auto) 7.5, Lymphocytes # (Auto) 1.0, Monocytes # (Auto) 0.4, Eosinophils # (Auto) 0.2, Basophils # (Auto) 0.0, Immature Granulocyte # (Auto) 0.1 Microbiology 07/04/22 Blood Culture - Preliminary, Resulted No growth 07/04/22 Urine Culture - Final, Complete NO GROWTH Assessment/Plan Assessment/Plan Assessment/Plan Intrabdominal abscess s/p laparoscopic appendectomy with perforation on 06/03/2022 N/V Leukocytosis- resolved Anemia- improved Continue patient on zosyn. Pain is currently well controlled, switch to oral pain meds. Continue zofran and phenergan PRN for nausea. Monitor Hgb and WBC with AM labs. Obtaining CT this AM to determine if any changes to intrabdominal abscess. KENDELL FOSTER DO 07/10/22 1330: Subjective Time Seen by a Provider: 11:32 Subjective/Events-last exam Pt seen and examined, states he is feeling better with no more vomiting today. Would like to try eating again. Review of Systems Pulmonary: No Dyspnea, No Cough Cardiovascular: No: Chest Pain, Palpitations Gastrointestinal: Nausea, Vomiting, Diarrhea; No: Abdominal Pain, Melena, Hematochezia Objective Exam General Appearance: No Apparent Distress, WD/WN HEENT: PERRL/EOMI, Moist Mucous Membranes Respiratory: Lungs Clear, Normal Breath Sounds, No Accessory Muscle Use, No Respiratory Distress Cardiovascular: Regular Rate, Rhythm, No Murmur Gastrointestinal: normal bowel sounds, tenderness (RUQ, but he says minimal tenderness and feels more uncomfortable) Assessment/Plan Assessment/Plan Assessment/Plan Intrabdominal abscess s/p laparoscopic appendectomy with perforation on 06/03/2022 N/V Leukocytosis- resolved Anemia- improved Continue patient on zosyn. Pain is currently well controlled, switch to oral pain meds. Continue zofran and phenergan PRN for nausea. Monitor Hgb and WBC with AM labs. CT this AM showed the intrabdominal abscess has gotten slightly smaller. Will have pt try clears again I went and spoke with radiologist and we went over films together; he thinks he could aspirate the abscess, but doesn't think there is more than a cc of fluid in there. He thinks waiting, because it will most likely resolve on its own, is the thing to do. Therefore, will continue to monitor and hold off on aspiration or Laparoscopic washout. Supervisory-Addendum Brief Verification & Attestation Participated in pt care: history, MDM, physical Personally performed: exam, history, MDM, supervision of care Care discussed with: Medical Student Procedures: n/a Verification and Attestation of Medical Student E/M Service A medical student performed and documented this service. I then reviewed and verified all information documented by the medical student and made modifications to such information, when appropriate. I personally performed a physical exam, medical decision making and then discussed any differences b etween the notes and made revisions as necessary to create one note. Kendell Foster , 07/10/22 , 13:17 YARI ANN Jul 10, 2022 07:15 KENDELL FOSTER DO Jul 10, 2022 13:30
[2022-07-10] MEDS ORDERED: NS 100 ML (IVPB) BAG IV ONE (08:00)
[2022-07-10] MEDS ORDERED: IOHEXOL 350 MG/ML 100 ML (OMNIPAQUE 350) VIAL IV ONE (08:00)
[2022-07-10] MEDS ORDERED: HOLD METFORMIN - RECEIVED CONTRAST 20 ML VIAL IV SCH (08:00)
[2022-07-10] MEDS ORDERED: CATHETER FLUSH 10 ML SYR IV PRN (08:00)
[2022-07-10 08:09] VITALS: BP 147/82
--- NOTE | 2022-07-10 09:12 | Diagnostic Imaging Report ---
EXAMINATION: CT abdomen and pelvis with intravenous contrast. TECHNIQUE: Multiple contiguous axial images were obtained through the abdomen and pelvis after the uneventful administration of intravenous contrast. All CT scans use one or more of the following dose optimizing techniques: automated exposure control, MA and/or KvP adjustment based on patient size and exam type or iterative reconstruction. HISTORY: Abscess COMPARISON: 07/04/2022 FINDINGS: Limited views of the lower thorax show mild right base atelectasis. The liver is normal without focal lesion. There is no biliary ductal dilation. Gallbladder is normal. Pancreas is normal. Spleen is normal. Adrenal glands are normal. The kidneys are normal. There is no hydronephrosis. Urinary bladder is normal. There is a loculated rim-enhancing fluid collection in the mesocolon measuring 2.2 x 2.5 cm, previously 3.3 x 2.5 cm. There is some wall thickening in the hepatic flexure of the colon. No new fluid collection is seen. No free fluid or air. No abdominal or pelvic lymphadenopathy. Aorta is normal in caliber without aneurysm. There are no suspicious osseus lesions. IMPRESSION: 1. Mild decrease in size of loculated rim-enhancing fluid collection in the mesocolon consistent with an abscess. Dictated by: Dictated on workstation # [id number]
[2022-07-10 15:45] VITALS: BP 138/81
[2022-07-10 23:39] VITALS: BP 150/85
[2022-07-11] MEDS: LACTATED RINGERS 1,000 ML IV SCH ×2 (04:02→10:26)
--- NOTE | 2022-07-11 08:25 | Progress Note - Surgery ---
YARI ANN 07/11/22 0825: Subjective Date Seen by a Provider: Jul 11, 2022 Time Seen by a Provider: 07:48 Subjective/Events-last exam Patient claims he feels better today. He also looks better, he was sitting in the chair when I entered the room and this is the first time I have seen him out of bed. He has no pain in his abdomen, his only complaint is the nausea he is experiencing after eating. Because of this he said he only had half of the broth they brought him last night. He has been ambulating and using IS. Review of Systems Pulmonary: No Dyspnea, No Cough Cardiovascular: No: Chest Pain, Palpitations, Lt Headedness Gastrointestinal: Nausea (not currently, only after eating food), Vomiting (last episode yesterday at 1500 after eating); No: Abdominal Pain Objective Exam Vital Signs Date Time Temp Pulse Resp B/P (MAP) Pulse Ox O2 Delivery O2 Flow Rate FiO2 07/10/22 23:39 36.0 51 18 150/85 (106) 97 Room Air 07/10/22 19:45 Room Air 07/10/22 15:45 36.6 57 20 138/81 (100) 97 Room Air I & O 07/11/22 07:00 Intake Total 3000 ml Output Total 1050 ml Balance 1950 ml Capillary Refill : Less Than 3 Seconds General Appearance: No Apparent Distress, WD/WN HEENT: PERRL/EOMI, Moist Mucous Membranes Neck: Non Tender, Supple Respiratory: Lungs Clear, Normal Breath Sounds, No Accessory Muscle Use, No Respiratory Distress Cardiovascular: Regular Rate, Rhythm, No Murmur Peripheral Pulses: 2+ Dorsalis Pedis (R), 2+ Left Dors-Pedis (L), 2+ Radial Pulses (R), 2+ Radial Pulses (L) Gastrointestinal: normal bowel sounds, non tender; No distended, No guarding Extremity: Non Tender, No Calf Tenderness Neurologic/Psychiatric: Alert, Oriented x3 Skin: Normal Color, Warm/Dry Lymphatic: No Adenopathy (cervical) Results Lab Microbiology 07/04/22 Blood Culture - Final, Complete No growth 07/04/22 Urine Culture - Final, Complete NO GROWTH Assessment/Plan Assessment/Plan Assessment/Plan Intrabdominal abscess s/p laparoscopic appendectomy with perforation on 06/03/2022 N/V Leukocytosis- resolved Anemia- improved Pain is currently well controlled, switch to oral pain meds PRN. Last dose of zosyn given yesterday. Zofran and phenergan PRN for nausea. I encouraged him to ask for zofran before he was about to eat in order to help with nausea. CT yesterday showed the intrabdominal abscess has gotten slightly smaller. Will have pt try clears again. KENDELL FOSTER DO 07/11/22 1533: Subjective Time Seen by a Provider: 09:31 Subjective/Events-last exam Pt seen and examined, states he is feeling better and tolerated clears. Review of Systems Pulmonary: No Dyspnea, No Cough Cardiovascular: No: Chest Pain, Palpitations Gastrointestinal: Nausea (not currently, only after eating food), Vomiting (last episode yesterday at 1500 after eating); No: Abdominal Pain Objective Exam General Appearance: No Apparent Distress (looks back to normal), WD/WN HEENT: PERRL/EOMI Respiratory: Lungs Clear, Normal Breath Sounds, No Accessory Muscle Use, No Respiratory Distress Cardiovascular: Regular Rate, Rhythm, No Murmur Assessment/Plan Assessment/Plan Assessment/Plan Intrabdominal abscess s/p laparoscopic appendectomy with perforation on 06/03/2022 N/V Leukocytosis- resolved Anemia- improved Pain is currently well controlled, switch to oral pain meds PRN. Last dose of zosyn given yesterday. CT yesterday showed the intrabdominal abscess has gotten slightly smaller. Pt tolerating some clears again, will wait to see how he does with lunch and then maybe give a more significant snack; if he tolerates will send him home. Supervisory-Addendum Brief Verification & Attestation Participated in pt care: history, MDM, physical Personally performed: exam, history, MDM, supervision of care Care discussed with: Medical Student Procedures: n/a Verification and Attestation of Medical Student E/M Service A medical student performed and documented this service. I then reviewed and verified all information documented by the medical student and made modifications to such information, when appropriate. I personally performed a physical exam, medical decision making and then discussed any differences between the notes and made revisions as necessary to create one note. Kendell Foster , 07/11/22 , 15:33 YARI ANN Jul 11, 2022 08:25 KENDELL FOSTER DO Jul 11, 2022 15:33
[2022-07-11 08:48] VITALS: BP 128/82
[2022-07-11] MEDS ORDERED: AMOX-355 PO (15:36)
[2022-07-11] MEDS ORDERED: CIPR500S3 PO (15:36)
--- NOTE | 2022-07-11 15:37 | Discharge Inst-Surgical ---
Discharge Inst-Surgical Depart Medication/Instructions New, Converted or Re-Newed RX: Transmitted to Pharmacy Patient Instructions Follow up Appt: Make appointment for 1 week. [phone] Instructions: May shower in 24 hours Use incentive spirometer at home as directed. No Smoking Symptoms to Report: Appetite Changes, Extremity Discoloration, Numbness/Tingling, Swelling Increased, Bleeding Excessive, Eyesight Changes, Pain Increased, Urine Color Change, Constipation(Persistent), Fever over 101 degree F, Pain/Pressure in chest, Urinating Difficulty, Cough Up/Vomit Blood, Heart Beat Irreg/Pounding, Pain/Pressure in jaw, Cramps in feet or legs, Lightheadedness, Pain/Pressure in shoulder, Diarrhea(Persistent), Memory Changes Suddenly, Questions/Concerns, Weight gain consecutive days, Dizziness/Fainting, Nausea/Vomiting, Shortness of Breath, Weight gain over 2 pounds If questions or concerns contact your physician Or seek help at emergency department. Activity Activity as Tolerated: Yes Driving Instructions: You May Drive Diet Discharge Diet: No Restrictions Diet After 24 Hours: Clear Liquid if Nauseous If Any Problems/Questions/Issu: Contact Your Physician, Go to Emergency Room Skin/Wound Care Infection Signs and Symptoms: Increased Swelling, Temperature Above 101 F Bathing Instructions: NAMITA Georges DO Jul 11, 2022 15:37
[2022-07-11 16:14] VITALS: BP 121/81
== END 2022-07-11 16:26 | disposition home or self-care (01) | DRG 373 ==
LOC: EDUNIT# 20:10 → ER 20:13 → 4TH 22:15
PROVIDERS: ADMIT Surgery; ATTEND Surgery
DX: K65.1 Peritoneal abscess (principal); R11.2 Nausea with vomiting, unspecified; D72.829 Elevated white blood cell count, unspecified; D64.9 Anemia, unspecified; Z90.49 Acquired absence of other specified parts of digestive tract
CPT/HCPCS: 36415; 74177; 80048; 80053; 81000; 83690; 85007; 85025; 85027; 86141; 87040; 87088; 94664; 94760; 96361; 96365; 96375; 96376